=== PATIENT | female | born 1965 | race Caucasian/White ===

== ENCOUNTER 2020-06-02 22:35 | Emergency (ER) | payer OTHER ==
--- OUTSIDE RECORDS SUMMARY | 2020-06-02 22:36 | XMS REPORT | Continuity of Care Document ---
:1965 Author Organization [facility] t Address [address] [place] [address] Care Team Providers Name Role Phone DENISE Attending Clinician Unavailable Familia Mariee Attending Clinician Ezio Hardy Attending Clinician Problems Condition Condition Condition Status Onset Resolution Last Treating Co mments Source Name Details Category Date Date Treatment Clinician Date Z07.15 - Diagnosis Active 2015-12-01 M emoria ENCNTR 11-30 15:55:00 l SCREEN Z. - 00:01: Jerel smith MAMMOGRAM ENCNTR 00 FOR MA SCREEN MAMMOGRAM FOR MA Active 12/01/2015 OPID Dennard 622.4 - Diagnosis Active 2015-01-21 Me moria STRICTURE 01-19 12:37:00 l OF CE 622.4 - 00:01: [place] STRICTURE 00 OF CE Active 01/19/2015 OPID Dennard History of History of Problem Resolve Univers depression depression d it y of [place] [facility] History of History of Problem Resolve Univers Lyme Lyme d ity of disease disease [place] [facility] History of History of Problem Resolve Univers Osteoarthr Osteoarthr d it y of itis itis [place] [facility] Encounter Encounter Problem Active Uni vers for for it[place] cyn[place] cynthia Physici examinatio examinatio an s n with n with Papanicola Papanicola ou smear ou smear of cervix of cervix Allergies, Adverse Reactions, Alerts Allergy Allergy Status Severity Reaction(s) Onset Inactive Treating Comm ents Source Name Type Date Date Clinician Penicill drug Active Univers ins allergy [facility] [place] [facility] sulfa drug Active [facility] allergy [facility] [place] [facility] penicill penicill Active Memori a ins ins l [place] sulfa sulfa Active Memoria drugs drugs l [place] Social History Social Habit Start Date Stop Date Quantity Comments Source Social History 2015-12-02 2015-12-02 [facility] Sadiq bernardo 04:59:00 04:59:00 Smoking Status Start Date Stop Date Source Current every day smoker [facility] [place] [facility] Medications Ordered Filled Start Stop Current Ordering Indication Dosage Frequency Signature Comments Components Source Medication Medication Date Date Medication? Clinician (SIG) Name Name metroNIDAZO metroNIDAZO Yes WILLIAM Take one Univers LE 500 MG LE 500 MG 3-28 DENISE tablet po ity of Oral Tablet Oral Tablet 00:00: M.D. bid for 7 [place] 00 days Physici ans Wellbutrin Wellbutrin Yes R.N. Uni vers TABS TABS [facility] [place] [facility] Adderall Adderall Yes R.N. Univers TABS TABS ity of [place] [facility] carBAMazepi carBAMazepi Yes R.N. U nivers ne TABS ne TABS ity of [place] [facility] Gabapentin Gabapentin Yes R.N. Uni vers TABS TABS ity of [place] [facility] ans traZODone traZODone Yes R.N. Unive rs HCl TABS HCl TABS ity of [place] [facility] Vital Signs Vital Name Observation Time Observation Value Comments Source BP Systolic 2018-10-09 113 mm[Hg] Location: [facility] 15:52:00 Position: [place] [facility] Sitting BP Diastolic 2018-10-09 71 mm[Hg] Location: [facility] 15:52:00 Position: [place] [facility] Sitting Height 2018-10-09 64 [in_us] [facility] 15:52:00 [place] Physician s Weight 2018-10-09 141 [lb_av] [facility] 15:52:00 [place] [facility] Body Mass Index 2018-10-09 24.2 kg/m2 University o Calculated 15:52:00 [place] Physician s Temperature 2018-10-09 98.6 [degF] Method: Oral [facility] 15:52:00 [place] [facility] Heart Rate 2018-10-09 73 /min Location: [facility] 15:52:00 Brachial [place] [facility] Artery; Procedures Procedure Date / Time Performed Performing Clinician Judy Chung [facility] - PAP 2018-10-10 00:00:00 [facility] [place] [facility] . [facility] - Affirm 2018-10-10 00:00:00 [facility] VPIII (BV Panel) Physicians [QH] HEPATITIS B 2018-10-09 00:00:00 [facility] SURFACE ANTIGEN W/REFL Physician s CONFIRM [QH] HIV AB, HIV 1/2, 2018-10-09 00:00[facility]00 [facility] WITH [facility]LEX[facility] Phys[facility] [QLH] HEPATITIS C 2018-10-09 00:00:00 [facility] ANTIBODY Physicians [QLH] RPR 2018-10-09 00:00:00 [place] [facility] [place] [facility] History of Uterine [facility] nerve ablation Physicians History of Orthopedic [facility] surgery Physicians History of Knee [facility] xa surgery Physicians History of Spinal [facility] surgery Physicians Plan of Care Planned Activity Planned Date Details Comments Source Diagnostic Test 2018-10-10 . [facility] - PAP [facility] Pending 00:00:00 [code = . [facility]icians - PAP] Diagnostic Test 2018-10-10 . [facility] - Affirm [facility] Pending 00:00:00 VPIII (BV Panel) Physicians [code = . 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 ans 2015-12-01 2015-12-01 Outpatient Akhil Mariee [id number] . [id number] 15:47:00 23:59:00 Familia [id number] 2015-01-21 2015-01-21 Outpatient Pan Hardy [id number] 12:29:00 23:59:00 Ezio 00 Results Test Description Test Time Test Comments Results Result Comments Source . [facility] - Affirm VPIII (BV Panel) 2018-10-10 00:00:00 Test Item Value Reference Range Interpretation Comme nts Affirm VPIII (BV Panel) REPORT (test code = Affirm VPIII (BV Panel) See Comment REPORT) [facility] Physicians[[facility]] [id number] 16:15:01 Test Item Value Reference Range Interpretation Comments RPR (test code = 26018-5) Non-Reactive Non-Reactive [facility][] HEPATITIS B SURFACE ANTIGEN W/REFL CONFIRM 2018-10-09 16:15:01 Test Item Value Reference Range Interpretation Comments Hepatitis B Surface Antigen (test Negative Negative code = 5195-3) [facility]] HEPATITIS C [id number] 16:15:01 Test Item Value Reference Range Interpretation Comments Hepatitis C Antibody (test code = Negative 83753-2) [facility][] HIV AB, HIV 1/2, EIA, WITH [id number] 16:15:01 Test Item Value Reference Range Interpretation Comments HIV Ag/Ab 4th Gen Negative Negative HIV test r esults should be (test code = considered posi tive only 84643-1) when both the s creening andthe confirma tory tests are positive. A negative confirmatory te st in patientswith a positive screening test does not exclude HIV inf ection. If clincallywarran caty, an HIV RNA quantitativ e test should be order ed. [facility]
--- OUTSIDE RECORDS SUMMARY | 2020-06-02 22:36 | XMS REPORT | Continuity of Care Document ---
:1965 Author Organization [facility] Information [place] Care Team Providers Name Role Phone [facility] Information [employer] Unavailable Un available Problems Problem Status Onset Classification Date Comments Sourc e Date Reported Z12.31 - Active MH OPID Th e ENCNTR SCREEN 6 [place] MAMMOGRAM FOR [place] 622.4 - Active OPID Th e STRICTURE OF 5 [place] CE Medications No Data Provided for This Section Allergies, Adverse Reactions, Alerts Substance Category Reaction Severity Reaction Status Date Comments S ource type Reported penicillins Assertion Drug Active OPID allergy [facility] [place] [facility] sulfa drugs Assertion Drug Active OPID allergy [facility] Immunizations No Data Provided for This Section Results No Data Provided for This Section Pathology Reports No Data Provided for This Section Diagnostic Reports Report Value Date Source Digital Mammo Screen - DIGITAL MAMMO SCREEN PIERCE MA W ABEBE 2015 MH OPID [facility] MA w abebe BILATERAL DIGITAL SCREENING MAMMOGRAM 3D/2D WITH CAD: 12/01/2015 CLINICAL: Screening Karina Vicente . 2D digital mammographic imag es and 3D digital tomosynthesis images were obtained in the CC and MLO projections. Current study was evaluated with a Manager Of Production d Detection (CAD) system. No prior exams were available for comparison. The tissue of both breasts i s heterogeneously dense, which could obscure detection of small masses. No significant masses, calci fications, or other findings are seen in either breast. IMPRESSION: NEGATIVE There is no mammographic aziza dence of malignancy. A 1 year screening mammogram is recommended. Anthony pena/otoniel:12/14/2015 10:31:35 [employer] Package Symbol Stamper: Soren Em [facility] This exam was dictated and i nterpreted by [id number] for [facility]. letter sent: Normal [place] Mammogram BI-RADS: 1 Negative Spine cervical w/wo Name: KARINA VICENTE 01/21/2015 [employer] SHETH Vent[place] contrast MRI : 1965 SEX: F Ordering Physician: Pan Hardy Spine cervical w/wo contrast MRI : Jan 21, 2015 01:29:00 PM. CLINICAL INDICATION: Left arm weakness. Comparison Examination: 04/21/2009 TECHNIQUE: Multiplanar noncontrast T1, T2, and STIR weighted as well as contrast enhanced MR images of the cervical spine are obtained on a Alatorre 3 Regine magnet. Contrast: 16cc of intravenous gadolinium FINDINGS: Visualized intracranial structures are within no rmal limits. Vertebral body heights are maintained. Multilevel disc desiccation is seen. Prevertebral soft tissues are within normal limi ts. Cord signal and contour is within normal limits. C2-3: Progressive right para central disc osteophyte complex causes moderate right neural foraminal narrowing. No central spinal canal stenosis. C3-4: Progressive right para central disc osteophyte complex causes moderate right greater than left neural foraminal narrowing. No central spinal canal stenosis. C4-5: Persistent disc osteop hyte complex causes mild central spinal canal stenosis. Moderate to marked right and mild left neural foraminal narrowing. C5-6: Persistent left parace ntral disc osteophyte complex causes severe central spinal canal stenosis and left neural foraminal narrowing. Moderate right neural foraminal narrowing. C6-7: Persistent left parace ntral disc osteophyte complex causes mild to moderate central spinal canal stenosis. Moderate left and mild right neural foraminal narrowing. C7-T1: Small disc osteophyte complex causes persistent mild bilateral neural foraminal narrowing. No central spinal canal stenosis. IMPRESSION: 1. C2-3: Progressive right p aracentral disc osteophyte complex causes moderate right neural foraminal narrowing. 2. C3-4: Progressive right p aracentral disc osteophyte complex causes moderate right greater than left neural foraminal narrowing. 3. C5-6: Persistent left par acentral disc osteophyte complex causes severe central spinal canal stenosis and left neural foraminal narrowing. Moderate right neural foraminal narrowing. 4. C6-7: Persistent left par acentral disc osteophyte complex causes mild to moderate central spinal canal stenosis. Moderate left and mild right neural foraminal narrowing. TWOPID - 55 Consultation Notes No Data Provided for This Section Discharge Summaries No Data Provided for This Section History and Physicals No Data Provided for This Section Vital Signs No Data Provided for This Section Encounters Location Location Encounter Encounter Reason Attending ADM [place] Stat Source Details Type Number For Provider Date Date Visit [facility] Outpt Diag [id number] Pan Antony 01/21 01/22 OP[facility] Outpatient Services /2014 [facility] Outpatient [id number] Akhil Mariee 11/30 12/01 OP[facility] Outpatient /2015 [facility] Procedures No Data Provided for This Section Assessment and Plan No Data Provided for This Section Plan of Care No Data Provided for This Section Social History Social History Date Source No data available for this 12/02/2015 [facility]ID [facility] section Family History No Data Provided for This Section Advance Directives No Data Provided for This Section Functional Status No Data Provided for This Section
[2020-06-02] MEDS ORDERED: ONDANSETRON 4 MG/2 ML VIAL ONE (23:55)
[2020-06-02] MEDS ORDERED: NA CHLORIDE 0.9% 1,000 ML ONE (23:55)
[2020-06-02] MEDS ORDERED: FENTANYL CITR 100 MCG/2 ML ONE (23:55)
[2020-06-02] MEDS ORDERED: CEFTRIAXONE/SWI 1gm 1 GM/10 ML SYR ONE (23:56)
[2020-06-03 00:18] LABS: Absolute Lymphocytes (CBC) 1.8 K/uL (0.7-4.9); Basophils % 0.7 % (0-1.3); Hematocrit 38.1 % (36.0-45.0); Lymphocytes % 15.1 % (15.3-44.8); MPV 8.9 fL (7.6-11.3); RBC Red Blood Cell Count 4.23 M/uL (3.86-4.86)
[2020-06-03 00:21] LABS: Urine Blood 2+ (NEG); Urine Glucose TRACE (NEG); Urine Protein 2+ (NEG); Urine pH 6.5 (5.0-7.0)
[2020-06-03 00:30] LABS: ALT/SGPT 17 U/L (12-78); AST/SGOT 9 U/L (15-37); Albumin 3.4 g/dL (3.4-5.0); Alkaline Phosphatase 98 U/L (45-117); BUN Blood Urea Nitrogen 19 mg/dL (7-18); Bicarbonate 29 mmol/L (21-32); Bilirubin Direct < 0.1 mg/dL (0-0.2); Bilirubin Total 0.2 mg/dL (0.2-1.0); Glucose Level 88 mg/dL (74-106); Lipase 205 U/L (73-393); Potassium 3.7 mmol/L (3.5-5.1); Protein, Total 7.3 g/dL (6.4-8.2); Sodium Level 144 mmol/L (136-145)
[2020-06-03 00:42] LABS: Urine Bacteria <20 /HPF (<20); Urine Culture Reflex Order REFLEXED
--- NOTE | 2020-06-03 01:01 | EDPHYS ---
Physician Documentation [facility] Name: Karina Vicente Age: 55 yrs Sex: Female : 1965 Arrival Date: 06/02/2020 Time: 22:38 Bed 7 Private MD: ED Physician Yoshi Posadas HPI: 06/02 23:20 This 55 yrs old Female presents to ER via Ambulatory with complaints of Pain cp With Urination, Blood In Urine, Abdominal Pain. 23:20 The patient presents with urinary symptoms, dysuria, hematuria. cp 23:20 Onset: The symptoms/episode began/occurred 2 day(s) ago. Associated signs and symptoms: cp Pertinent positives: dysuria, hematuria, nausea, Pertinent negatives: constipation, diarrhea, fever, vomiting. Severity of symptoms: in the emergency department the symptoms are unchanged, despite home interventions. 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 - Social history:: Smoking status: Reported history of juuling and/or vaping. ROS: 23:30 Constitutional: Negative for body aches, chills, fever, poor PO intake. cp 23:30 Eyes: Negative for injury, pain, redness, and discharge. cp 23:30 ENT: Negative for ear pain, sore throat, difficulty swallowing, difficulty handling secretions. 23:30 Cardiovascular: Negative for chest pain, palpitations. 23:30 Respiratory: Negative for cough, shortness of breath, wheezing. 23:30 Abdomen/GI: Positive for abdominal pain, nausea, of the suprapubic area, anterior aspect of left lateral abdomen, right lower quadrant and left lower quadrant, Negative for vomiting, diarrhea, constipation. 23:30 : Positive for hematuria, burning with urination. 23:30 Neuro: Negative for altered mental status, headache, weakness. 23:30 All other systems are negative. Exam: 23:33 Constitutional: The patient appears in no acute distress, alert, awake, non-toxic, well cp developed, well nourished, uncomfortable. 23:33 Head/Face: Normocephalic, atraumatic. cp 23:33 Eyes: Periorbital structures: appear normal, Conjunctiva: normal, no exudate, no injection, Sclera: no appreciated abnormality, Lids and lashes: appear normal, bilaterally. 23:33 ENT: External ear(s): are unremarkable, Nose: is normal, Mouth: Lips: moist, Oral mucosa: moist, Posterior pharynx: Airway: no evidence of obstruction, patent. 23:33 Neck: ROM/movement: is normal, is supple, without pain, no range of motions limitations. 23:33 Chest/axilla: Inspection: normal, Palpation: is normal, no crepitus, no tenderness. 23:33 Cardiovascular: Rate: normal, Rhythm: regular. 23:33 Respiratory: the patient does not display signs of respiratory distress, Respirations: normal, no use of accessory muscles, no retractions, labored breathing, is not present, Breath sounds: are clear throughout, no decreased breath sounds, no stridor, no wheezing. 23:33 Abdomen/GI: Inspection: abdomen appears normal, Bowel sounds: active, all quadrants, Palpation: moderate abdominal tenderness, in the suprapubic area, right lower quadrant and left lower quadrant, rebound tenderness, is not appreciated, voluntary guarding, is elicited in the suprapubic area, right lower quadrant and left lower quadrant. 23:33 Back: ROM is normal, CVA tenderness, that is mild, is noted on the left. 23:33 Skin: no rash present. 23:33 Neuro: Orientation: to person, place \T\ time. Mentation: is normal, Motor: moves all fours, strength is normal, Gait: is steady. Vital Signs: 22:47 BP 114 / 73; Pulse 97; Resp 18; Temp 98.7(O); Pulse Ox 98% on R/A; Weight 62.14 kg; dm5 Height 5 ft. 4 in. (162.56 cm); Pain 02/22; 06/03 01:00 BP 123 / 88; Pulse 80; Resp 18; Temp 98.6; Pulse Ox 98% ; ea 06/02 22:47 Body Mass Index 23.52 (62.14 kg, 162.56 cm) dm5 MDM: 06/02 22:59 Patient medically screened. cp 06/03 01:01 Data reviewed: vital signs, nurses notes, lab test result(s), radiologic studies, CT cp scan. 01:01 Counseling: I had a detailed discussion with the patient and/or guardian regarding: the cp historical points, exam findings, and any diagnostic results supporting the discharge/admit diagnosis, lab results, radiology results, to return to the emergency department if symptoms worsen or persist or if there are any questions or concerns that arise at home. Response to treatment: the patient's symptoms have markedly improved after treatment. ED course: VSS. Pain and nausea markedly improved. [place] prescription monitor website reviewed and no recent prescriptions for narcotic medications noted. Will discharge to home for continued monitoring. 06/02 22:56 Order name: Urine Microscopic Only; Complete Time: 01: 06/03 01:01 Interpretation: Normal except: UWBC >50; URBC 10-20. 06/02 23:08 Order name: Urine Dipstick--Ancillary (enter results); Complete Time: 00:26 06/03 00:26 Interpretation: Normal except: UBLD 2+; UPROT 2+; U NIT POSITIVE; UESTR 1+. 06/02 23:08 Order name: Urine --Ancillary (enter results); Complete Time: 00:26 06/02 23:37 Order name: Basic Metabolic Panel 06/02 23:37 Order name: CBC with Diff; Complete Time: 00:26 06/03 01:02 Interpretation: Normal except: WBC 12.1; ANGEL% 75.3; LYM% 15.1; NEUT A 9.1. 06/02 23:37 Order name: Hepatic Function; Complete Time: 01: 06/02 23:37 Order name: Lipase; Complete Time: 01: 06/02 23:38 Order name: Basic Metabolic Panel; Complete Time: 01:01 [facility] 06/02 23:38 Order name: CT Stone Protocol 06/03 00:44 Order name: Urine Culture [facility] 06/02 22:56 Order name: Urine Dipstick-Ancillary (obtain specimen); Complete Time: 23:07 06/02 22:56 Order name: Urine Test (obtain specimen); Complete Time: 23:07 06/02 23:37 Order name: IV Saline Lock; Complete Time: 00:09 06/02 23:37 Order name: Labs collected and sent; Complete Time: 00:09 Administered Medications: 00:00 Drug: Rocephin 1 grams Route: IV; Rate: calculated rate; Site: left forearm; ea 01:20 Follow up: Response: No adverse reaction; IV Status: Completed infusion ea 00:00 Drug: Zofran (Ondansetron) 4 mg Route: IVP; Site: left forearm; ea 01:00 Follow up: Response: No adverse reaction ea 00:00 Drug: NS 0.9% 1000 ml Route: IV; Rate: 1 bolus; Site: left forearm; ea 01:00 Follow up: Response: No adverse reaction; IV Status: Completed infusion; IV Intake: ea 1000ml 00:05 Drug: fentaNYL (PF) 25 mcg {Note: raas 1.} Route: IVP; Site: left antecubital; ea 01:00 Follow up: Response: No adverse reaction ea Disposition: 03:05 Co-signature as Attending Physician, Yoshi Posadas MD. pkcristian Disposition: 06/03/20 01:01 Discharged to Home. Impression: Cystitis, unspecified. - Condition is Stable. - Discharge Instructions: Urinary Tract Infection, Adult. - Prescriptions for Pyridium 200 mg Oral Tablet - take 1 tablet by ORAL route every 8 hours for 3 days; 9 tablet. Zofran 4 mg Oral Tablet - take 1 tablet by ORAL route every 12 hours As needed; 20 tablet. Keflex 500 mg Oral Capsule - take 1 capsule by ORAL route every 8 hours for 7 days; 21 capsule. Tramadol 50 mg Oral Tablet - take 1 tablet by ORAL route every 8 hours as needed; 12 tablet. - Medication Reconciliation Form, Thank You Letter, Antibiotic Education, Prescription Opioid Use form. - Family Work Release (06/03/20 01:30). ea - Follow up: Private Physician; When: 1 - 2 days; Reason: Recheck today's complaints. - Problem is new. - Symptoms have improved. Signatures: Dispatcher [employer] Veronica Moore RN RN dmYoshi Fuller MD MD pkl Page, Corey, PA PA cp Antunez, Elena, RN RN ea Corrections: (The following items were deleted from the chart) 01:02 01:01 Normal except: WBC 12.1. cp cp 01:09 01:01 06/03/2020 01:01 Discharged to Home. Impression: Urinary tract infection, site cp not specified. Condition is Stable. Forms are Medication Reconciliation Form, Thank You Letter, Antibiotic Education, Prescription Opioid Use. Follow up: Private Physician; When: 1 - 2 days; Reason: Recheck today's complaints. Problem is new. Symptoms have improved. cp 01:21 01:09 06/03/2020 01:01 Discharged to Home. Impression: Cystitis, unspecified. Condition ea is Stable. Discharge Instructions: Urinary Tract Infection, Adult. Prescriptions for Pyridium 200 mg Oral Tablet - take 1 tablet by ORAL route every 8 hours for 3 days; 9 tablet, Zofran 4 mg Oral Tablet - take 1 tablet by ORAL route every 12 hours As needed; 20 tablet, Keflex 500 mg Oral Capsule - take 1 capsule by ORAL route every 8 hours for 7 days; 21 capsule, Tramadol 50 mg Oral Tablet - take 1 tablet by ORAL route every 8 hours as needed; 12 tablet. and Forms are Medication Reconciliation Form, Thank You Letter, Antibiotic Education, Prescription Opioid Use. Follow up: Private Physician; When: 1 - 2 days; Reason: Recheck today's complaints. Problem is new. Symptoms have improved. cp
--- NOTE | 2020-06-03 01:01 | ER ---
Nurse's Notes [facility] Name: Karina Vicente Age: 55 yrs Sex: Female : 1965 Arrival Date: 06/02/2020 Time: 22:38 Bed 7 Private MD: Diagnosis: Cystitis, unspecified Presentation: 06/02 22:47 Chief complaint: Patient states: pain with urination started, blood in urine started dm5 yesterday afternoon. abdominal pain started in LUQ and has moved to suprapubic area. Pain rated at 8/10 at this time. Pt reports taking AZO Sunday evening and this morning. Pt reports nausea intermittently, dizzyness. Coronavirus screen: Client denies travel out of the [place] in the last 14 days. nausea. Ebola Screen: Patient negative for fever greater than or equal to 101.5 degrees Fahrenheit, and additional compatible Ebola Virus Disease symptoms Patient denies exposure to infectious person. Patient denies travel to an Ebola-affected area in the 21 days before illness onset. No symptoms or risks identified at this time. Initial Sepsis Screen: Does the patient meet any 2 criteria? HR > 90 bpm. No. Patient's initial sepsis screen is negative. Does the patient have a suspected source of infection? Yes: Dysuria/Frequency/Urgency/UTI. Risk Assessment: Do you want to hurt yourself or someone else? Patient reports no desire to harm self or others. Onset of symptoms was May 31, 2020. 22:47 Method Of Arrival: Ambulatory dm5 22:47 Acuity: AMY 3 dm5 Triage Assessment: 22:51 General: Appears in no apparent distress. Behavior is calm, cooperative. Pain: dm5 Complains of pain in suprapubic area Pain currently is 8 out of 10 on a pain scale. Quality of pain is described as crampy, tingling, Is intermittent. Neuro: Level of Consciousness is awake, alert, obeys commands, Oriented to person, place, time, situation. GI: Reports lower abdominal pain, nausea. : Reports burning with urination, cramping, urgency, urinary frequency. TECHNICAL SME: 22:51 LMP N/A - ablation dm5 Historical: - Allergies: 22:51 PENICILLINS; dm5 22:51 Sulfa (Sulfonamide Antibiotics); dm5 - Immunization history:: Adult Immunizations up to date. - Social history:: Smoking status: Reported history of juuling and/or vaping. Screenin/19 00:20 Abuse screen: Denies threats or abuse. Nutritional screening: No deficits noted. ea Tuberculosis screening: No symptoms or risk factors identified. Fall Risk IV access (20 points). Assessment: 06/02 23:40 General: Appears uncomfortable, Behavior is appropriate for age. Pain: Complains of ea pain in suprapubic area. Neuro: Level of Consciousness is awake, alert, obeys commands, Oriented to person, place, time, situation. Cardiovascular: Patient's skin is warm and dry. Respiratory: Airway is patent Respiratory effort is even, unlabored, Respiratory pattern is regular, symmetrical. Derm: Skin is pink, warm \T\ dry. 06/03 01:18 Reassessment: Patient and/or family updated on plan of care and expected duration. Pain ea level reassessed. Patient is alert, oriented x 3, equal unlabored respirations, skin warm/dry/pink. Discharge instruction given to patient, verbalized the understanding of instruction. Pt left ED ambulatory tolerating well. Pt accompanied by family. Vital Signs: 06/02 22:47 BP 114 / 73; Pulse 97; Resp 18; Temp 98.7(O); Pulse Ox 98% on R/A; Weight 62.14 kg; dm5 Height 5 ft. 4 in. (162.56 cm); Pain 8/10; 06/03 01:00 BP 123 / 88; Pulse 80; Resp 18; Temp 98.6; Pulse Ox 98% ; ea 06/02 22:47 Body Mass Index 23.52 (62.14 kg, 162.56 cm) dm5 ED Course: 06/02 22:38 Patient arrived in ED. cl3 22:51 Triage completed. dm5 22:51 Arm band placed on right wrist. Patient placed in an exam room. dm5 22:52 Zen Galdamez PA is PHCP. cp 22:52 Yoshi Posadas MD is Attending Physician. cp 22:57 Aminata Garcia RN is Primary Nurse. ea 23:45 Inserted saline lock: 20 gauge in left forearm, using aseptic technique. Blood ea collected. 06/03 00:00 Urine collected: clean catch specimen, has been sent to lab for a UMIC/UCULTURE. sg 00:20 Patient has correct armband on for positive identification. Placed in gown. Call light ea in reach. Side rails up X 1. Pulse ox on. NIBP on. 00:23 CT Stone Protocol In Process Unspecified. EDMS 01:19 No provider procedures requiring assistance completed. IV discontinued, intact, ea bleeding controlled, No redness/swelling at site. Pressure dressing applied. Administered Medications: 00:00 Drug: Rocephin 1 grams Route: IV; Rate: calculated rate; Site: left forearm; ea 01:20 Follow up: Response: No adverse reaction; IV Status: Completed infusion ea 00:00 Drug: Zofran (Ondansetron) 4 mg Route: IVP; Site: left forearm; ea 01:00 Follow up: Response: No adverse reaction ea 00:00 Drug: NS 0.9% 1000 ml Route: IV; Rate: 1 bolus; Site: left forearm; ea 01:00 Follow up: Response: No adverse reaction; IV Status: Completed infusion; IV Intake: ea 1000ml 00:05 Drug: fentaNYL (PF) 25 mcg {Note: raas 1.} Route: IVP; Site: left antecubital; ea 01:00 Follow up: Response: No adverse reaction ea Intake: 01:00 IV: 1000ml; Total: 1000ml. ea Outcome: 01:01 Discharge ordered by . alpesh 01:19 Discharged to home ambulatory, with family. ea 01:19 Condition: stable 01:19 Discharge instructions given to patient, Instructed on discharge instructions, follow up and referral plans. medication usage, Demonstrated understanding of instructions, follow-up care, medications, Prescriptions given X 4. 01:21 Patient left the ED. ea Signatures: Dispatcher [employer] EDUT Veronica Bailon RN RN dm5 Gay, Steven, RN RN [place] PA PA cp Antunez, Elena, RN RN ea Lewis, Charde cl3 Corrections: (The following items were deleted from the chart) 01:19 01:18 Reassessment: Patient and/or family updated on plan of care and expected ea duration. Pain level reassessed. Patient is alert, oriented x 3, equal unlabored respirations, skin warm/dry/pink. Discharge instruction given to patient, verbalized the understanding of instruction. Pt left ED ambulatory tolerating well. ea
--- NOTE | 2020-06-03 10:17 | RAD REPORT ---
EXAM DESCRIPTION: CT - Stone Protocol - 06/03/2020 6:36 am CLINICAL HISTORY: Left flank pain; pain with urination, hematuria TECHNIQUE: Contiguous axial images obtained through the abdomen and pelvis without IV contrast. Kaleigh nal and sagittal reformatted images were provided. This exam was performed according to our departmental dose-optimization program, which includes autom ated exposure control, adjustment of the mA and/or kV according to patient size and/or use of iterati ve reconstruction technique. COMPARISON: None available for comparison. FINDINGS: Lung bases: Bibasilar subsegmental atelectasis. Left lower lobe calcified granuloma. Liver: Grossly unremarkable Gallbladder and biliary system: Unremarkable Pancreas: Grossly unremarkable Spleen: Grossly unremarkable Adrenals: Low density nodules bilaterally measuring 2 cm on the right and 1.6 cm on the left compatib le with benign adenomas. Kidneys: No calculi. No hydronephrosis. Bowel: Moderate stool. Colonic diverticula without adjacent inflammatory change. No obstruction. No a ppreciable mucosal thickening. Appendix: Normal caliber appendix. No findings to suggest acute appendicitis. Urinary bladder: Moderate circumferential urinary bladder wall thickening. Infiltrative changes withi n the perivesical fat. Reproductive: Unremarkable as visualized Lymph nodes: No pathologically enlarged lymph nodes. Peritoneum: No focal fluid collection. No free air. Vessels: Mild atherosclerotic disease. No abdominal aortic aneurysm. Abdominal wall: Tiny fat-containing umbilical hernia. Bones: Multilevel spondylosis. No acute fracture. IMPRESSION: 1. No renal, ureteral or bladder calculi. No evidence for renal obstruction. 2. Findings suggestive of cystitis. 3. Other findings as above. Electronically signed by: Fernando Fletcher MD 06/03/2020 12:35 AM METAL TILE SETTER Due to temporary technical issues with the PACS/Fluency reporting system, reports are being signed by the in house radiologist without review as a courtesy to ensure prompt reporting. The interpreting r adiologist is fully responsible for the content of the report.
[2020-06-03 12:06] VITALS: O2SAT 98
[2020-06-03 12:07] VITALS: BP 123/88; TEMP 98.6
== END 2020-06-03 01:21 | disposition home or self-care (01) ==
LOC: ER 22:35
DX: N30.90 Cystitis, unspecified without hematuria (principal); Z88.0 Allergy status to penicillin; Z88.2 Allergy status to sulfonamides
CPT/HCPCS: 87088; 85025; 87086; 80048; 36415; 81025; 80076; 81003; 81015; 83690; 76377; 74176; 99284; J3010; J0696; J7030; J2405

== ENCOUNTER 2024-09-10 20:05 | Emergency (ER) | payer OTHER ==
--- NOTE | 2024-09-10 21:12 | EDPHYS ---
Physician Documentation [facility] Name: Karina Vicente Age: 59 yrs Sex: Female : 1965 Arrival Date: 09/10/2024 Time: 20:05 Bed DX1 Private MD: Camilla Luque L. ED Physician Antonio Hauser HPI: 09/10 20:20 This 59 yrs old Female presents to ER via Unassigned with complaints of Mouth sp4 Pain, post op biopsy. 20:58 Right lower mandibular pain after biopsy . sp4 09/11 20:59 Patient reports she had right lower posterior gingival biopsy right next to tooth #31 sp4 to rule out oral cancer. This was done on Sunday. Since then patient developed increasing pain at the biopsy site associated with pain traveling down her neck. Patient is here to be evaluated for biopsy related complications. Biopsy was done by Dr. Luque with ENT . Historical: - Allergies: 09/10 21:31 PENICILLINS; vc1 21:31 Sulfa (Sulfonamide Antibiotics); vc1 - PMHx: 21:31 None; vc1 - PSHx: 21:31 right buccal biopsy; vc1 - Immunization history:: Client reports receiving the 2nd dose of the Covid vaccine. - Infectious Disease History:: Denies. - Social history:: Smoking status: Patient reports the use of cigarette tobacco products, smokes one-half pack cigarettes per day. - Family history:: not pertinent. ROS: 09/11 20:59 Constitutional: Negative for fever, chills, and weight loss, positive for oral pain and sp4 right lower gingival pain at the site of biopsy All other systems are negative, Exam: 20:59 Constitutional: This is a well developed, well nourished patient who is awake, alert, sp4 and in no acute distress. Head/Face: Normocephalic, atraumatic. Eyes: Pupils equal round and reactive to light, extra-ocular motions intact. Lids and lashes normal. Conjunctiva and sclera are not injected. Cornea within normal limits. Periorbital areas with no swelling, redness, or edema. ENT: Nares patent. No nasal discharge, no septal abnormalities noted. Tympanic membranes are normal and external auditory canals are clear. Oropharynx with no redness, swelling, or masses, exudates, or evidence of obstruction, uvula midline. Mucous membranes moist. Right lower gingiva posterior to tooth #31 there is biopsy site which appears clean without hemorrhage, punch type biopsy with associated swelling of surrounding tissues without significant erythema or signs of purulent exudate. No mass or significant fluid collection Neck: Trachea midline, no thyromegaly or masses palpated, and no cervical lymphadenopathy. Supple, full range of motion without nuchal rigidity, or vertebral point tenderness. Chest/axilla: Normal chest wall appearance and motion. Nontender with no deformity. No lesions are appreciated. Cardiovascular: Regular rate and rhythm with a normal S1 and S2. No gallops, murmurs, or rubs. Normal PMI, no JVD. No pulse deficits. Respiratory: Lungs have equal breath sounds bilaterally, clear to auscultation and percussion. No rales, rhonchi or wheezes noted. No increased work of breathing, no retractions or nasal flaring. Abdomen/GI: Soft, with normal bowel sounds. No distension or tympany. No guarding or rebound. No evidence of tenderness throughout. Back: No spinal tenderness. No costovertebral tenderness. Skin: Warm, dry with normal turgor. Normal color with no rashes, no lesions, and no evidence of cellulitis. MS/ Extremity: Pulses equal, no cyanosis. Neurovascular intact. Full, normal range of motion. Neuro: Awake and alert, GCS 15, oriented to person, place, time, and situation. Cranial nerves II-XII grossly intact. Motor strength 5/5 in all extremities. Sensory grossly intact. Psych: Awake, alert, with orientation to person, place and time. Behavior, mood, and affect are within normal limits Vital Signs: 09/10 21:29 BP 140 / 70; Pulse 65; Resp 16; Temp 97.4; Pulse Ox 98% ; Weight 58.97 kg; Height 5 ft. vc1 4 in. ; Pain 8/10; 21:29 Body Mass Index 22.31 (58.97 kg, 162.56 cm) vc1 21:29 Pain Scale: Adult vc1 Porfirio Coma Score: 09/11 20:59 Eye Response: spontaneous(4). Motor Response: obeys commands(6). Verbal Response: sp4 oriented(5). Total: 15. MDM: 09/10 21:04 Medical Screening Exam initiated sp4 09/11 21:02 Differential diagnosis: dental caries, gingivitis, dental abscess, aphthous ulcers, sp4 gingivostomatitis. Data reviewed: vital signs, nurses notes. ED course: Patient was discussed with her ENT Dr. Luque who advised pain control in ER also preventative cephalexin twice a day for 10 days. Patient was advised to call Dr. Luque in the morning for schedule appointment this coming week. No signs of significant biopsy complications no signs of fluid collection no signs of infection no signs of mass or active bleeding. There is no facial swelling no neck swelling and no neck mass on exam. Patient stable for discharge home.. Administered Medications: 09/10 21:10 CANCELLED (Patient Refused): bupivacaine(0.5 %) 10 ml 10 ml Infiltration once vc1 21:35 Drug: Cephalexin PO 500 mg PO once Route: PO; vc1 21:36 Follow up: Response: Medication administered at discharge. vc1 21:36 Drug: Ketorolac IM 30 mg IM once Route: IM; Site: right deltoid; vc1 21:36 Follow up: Response: Medication administered at discharge. vc1 Disposition Summary: 09/10/24 21:12 Discharge Ordered Notes: Location: Home sp4 Condition: Stable sp4 Diagnosis - Acute Right Lower Oral pain, Acute Post operative Oral pain, Pain at the site sp4 of gingival biopsy Followup: sp4 - With: Camilla Luque MD - When: 48 Hours - Reason: Recheck today's complaints Discharge Instructions: - Discharge Summary Sheet sp4 - Dental Pain, [id number] sp4 Forms: - Patient Portal Instructions sp4 Prescriptions: - Cephalexin 500 mg Oral Capsule - take 1 capsule ORAL route every 12 hours for 10 days; 20 capsule; Refills: 0, sp4 Product Selection Permitted - Ibuprofen 600 mg Oral Tablet - take 1 tablet ORAL route every 6 hours As needed take with food; 30 tablet; sp4 Refills: 0, Product Selection Permitted Signatures: Katy King RN RN vc1 Antonio Hauser MD MD sp4 Corrections: (The following items were deleted from the chart) 21:10 20:52 Bupivacaine Infiltration (0.5 %) 10 ml 10 ml Infiltration once ordered. sp4 vc1 21:32 21:31 PSHx: None; vc1 vc1
[2024-09-10] MEDS ORDERED: KETOROLAC 30 MG/ML INJ ONE (21:13)
[2024-09-10] MEDS ORDERED: CEPHALEXIN 250 MG CAP ONE (21:13)
--- NOTE | 2024-09-10 21:36 | ER ---
Nurse's Notes [facility] Name: Karina Vicente Age: 59 yrs Sex: Female : 1965 Arrival Date: 09/10/2024 Time: 20:05 Bed DX1 Private MD: Camilla Luque L. Diagnosis: Acute Right Lower Oral pain, Acute Post operative Oral pain, Pain at the site of gingival biopsy Presentation: 09/10 21:29 Chief complaint: Patient states: had a biopsy done on Sunday and it is getting more vc1 painful. Coronavirus screen: Client denies travel out of the [place] in the last 14 days. At this time, the client does not indicate any symptoms associated with coronavirus-19. Ebola Screen: Patient negative for fever greater than or equal to 101.5 degrees Fahrenheit, and additional compatible Ebola Virus Disease symptoms Patient denies exposure to infectious person. Patient denies travel to an Ebola-affected area in the 21 days before illness onset. No symptoms or risks identified at this time. Initial Sepsis Screen: Does the patient meet any 2 criteria? No. Patient's initial sepsis screen is negative. Does the patient have a suspected source of infection? No. Patient's initial sepsis screen is negative. Risk Assessment: Do you want to hurt yourself or someone else? Patient reports no desire to harm self or others. Onset of symptoms was September 10, 2024. 21:29 Method Of Arrival: Ambulatory vc1 21:29 Acuity: AMY 4 vc1 Triage Assessment: 21:33 General: Appears in no apparent distress. uncomfortable, slender, well groomed, well vc1 developed, Behavior is calm, cooperative, appropriate for age. Pain: Complains of pain in right cheek(inner). EENT: No deficits noted. No signs and/or symptoms were reported regarding the EENT system. Neuro: Level of Consciousness is awake, alert, obeys commands, Oriented to person, place, time, situation, Appropriate for age. Cardiovascular: Heart tones S1 S2 present Capillary refill < 3 seconds Patient's skin is warm and dry. Respiratory: Airway is patent Respiratory effort is even, unlabored, Respiratory pattern is regular, symmetrical, Breath sounds are clear bilaterally. GI: No deficits noted. No signs and/or symptoms were reported involving the gastrointestinal system. : No deficits noted. No signs and/or symptoms were reported regarding the genitourinary system. Derm: Skin is intact, is healthy with good turgor, Skin is dry, Skin is normal, Skin temperature is warm. Musculoskeletal: Circulation, motion, and sensation intact. Range of motion: intact in all extremities. Historical: - Allergies: 21:31 PENICILLINS; vc1 21:31 Sulfa (Sulfonamide Antibiotics); vc1 - PMHx: 21:31 None; vc1 - PSHx: 21:31 right buccal biopsy; vc1 - Immunization history:: Client reports receiving the 2nd dose of the Covid vaccine. - Infectious Disease History:: Denies. - Social history:: Smoking status: Patient reports the use of cigarette tobacco products, smokes one-half pack cigarettes per day. - Family history:: not pertinent. Screenin:32 [facility] ED Fall Risk Assessment (Adult) History of falling in the last 3 months, vc1 including since admission No falls in past 3 months (0 pts) Confusion or Disorientation No (0 pts) Intoxicated or Sedated No (0 pts) Impaired Gait No (0 pts) Mobility Assist Device Used No (0 pt) Altered Elimination No (0 pt) Score/Fall Risk Level 0 - 2 = Low Risk Oriented to surroundings, Maintained a safe environment, Educated pt \T\ family on fall prevention, incl call for assistance when getting out of bed, Hourly rounding (assess needs \T\ fall precautionary measures) done. Abuse screen: Denies threats or abuse. Nutritional screening: No deficits noted. Tuberculosis screening: No symptoms or risk factors identified. Vital Signs: 21:29 BP 140 / 70; Pulse 65; Resp 16; Temp 97.4; Pulse Ox 98% ; Weight 58.97 kg; Height 5 ft. vc1 4 in. ; Pain 8/10; 21:29 Body Mass Index 22.31 (58.97 kg, 162.56 cm) vc1 21:29 Pain Scale: Adult vc1 Porfirio Coma Score: 09/11 20:59 Eye Response: spontaneous(4). Motor Response: obeys commands(6). Verbal Response: sp4 oriented(5). Total: 15. ED Course: 09/10 20:07 Patient arrived in ED. gm2 20:08 Camilla Luque MD is Private Physician. gm2 20:19 Antonio Hauser MD is Attending Physician. sp4 21:11 Camilla Luque MD is Referral Physician. sp4 21:29 Katy King RN is Primary Nurse. vc1 21:31 Triage completed. vc1 21:32 Arm band placed on right wrist. vc1 21:33 Patient has correct armband on for positive identification. Bed in low position. Call vc1 light in reach. Provided Education on: complete abx. 21:35 No provider procedures requiring assistance completed. Patient did not have IV access vc1 during this emergency room visit. Administered Medications: 21:10 CANCELLED (Patient Refused): bupivacaine(0.5 %) 10 ml 10 ml Infiltration once vc1 21:35 Drug: Cephalexin PO 500 mg PO once Route: PO; vc1 21:36 Follow up: Response: Medication administered at discharge. vc1 21:36 Drug: Ketorolac IM 30 mg IM once Route: IM; Site: right deltoid; vc1 21:36 Follow up: Response: Medication administered at discharge. vc1 Medication: 21:33 VIS not applicable for this client. vc1 Outcome: 21:12 Discharge ordered by . sp4 21:35 Discharged to home ambulatory, vc1 21:35 Condition: stable 21:35 Discharge instructions given to patient, Instructed on discharge instructions, follow up and referral plans. medication usage, Demonstrated understanding of instructions, follow-up care, medications, Prescriptions given X 2, 21:35 Patient left the ED. vc1 Signatures: Katy King RN RN vc1 Antonio Hauser MD MD 4 Dorita Guevara 2 Corrections: (The following items were deleted from the chart) 21:32 21:31 PSHx: None; vc1 vc1
[2024-09-10 21:48] VITALS: BP 140/70; TEMP 97.4; O2SAT 98
== END 2024-09-10 21:35 | disposition home or self-care (01) ==
LOC: ER 20:05
DX: G89.18 Other acute postprocedural pain (principal); F17.210 Nicotine dependence, cigarettes, uncomplicated
CPT/HCPCS: 96372; 99284

== ENCOUNTER 2025-04-20 22:28 | Emergency (ER) | payer OTHER ==
[2025-04-20] MEDS ORDERED: LORazepam 2 MG/ML VIAL ONE (22:33)
--- OUTSIDE RECORDS SUMMARY | 2025-04-20 22:34 | XMS REPORT | Continuity of Care Document ---
Author Name Unknown Address [address] [facility] [place] [address] [facility] Address [address] [place] [address] Care Team Providers Care Chief Load Dispatcher Name Role Phone OpheliaAngelika Primary Care Physician JASON JESSICA Attending Clinician Unavailable JASON JESSICA Attending Clinician Unavailable Tori Little Attending Clinician [phone] Brandi Junior Attending Clinician [phone] KIN SCHROEDER Attending Clinician Unavailable Jason Jessica MD Attending Clinician [phone] Jose Luis Bingham MD Attending Clinician + Ana BEAN, Lashay Attending Clinician Un available Mirlande Mendez MD Attending Clinician [phone] Call, [facility] Phone Attending Clinician Unavail Shira Mensah MD Attending Clinician [phone] Queenie Cross DO Attending Clinician [phone] VERONICA WOODS Attending Clinician Unavailable Michael Gomze MD, Mary Vasquez Attending Clini anitra Susana Arteaga MD Attending Clinician [phone] SUSANA ARTEAGA Attending Clinician Unavailable WILLIAM WALKER M.D. Attending Clinician Unavail Jason Johns MD Admitting Clinician [phone] SHIRA HO Admitting Clinician Unavailable Payers Payer Name Policy Type Policy Number Effective Date Expirati on Date Source MEDICARE PART A AND B [id number] 2012 00:00:00 MEDICARE PART A \\T\\ B [id number] 2010 00:00:00 [facility] [id number] 2025 00:00:00 2025 00:00:00 Problems Condition Name Condition Details Condition Category Status Onset Date Resolution Date Last Treatment Date Treating Clinician Comments Source Lumbar radiculopa thy Lumbar radiculopa thy Disease Active 02-20 00:00: 00 [facility] Weakness of left leg Weakness of left leg Disease Active 02-20 00:00: 00 [facility] Tardive dyskinesia Tardive dyskinesia Disease Active 206 00:00: 00 [facility] History of depression History of depression Problem Resolve d [facility] History of Lyme disease History of Lyme disease Problem Resolve d [facility] History of Osteoarthr itis History of Osteoarthr itis Problem Resolve d [facility] Encounter for gynecologi cynthia examinatio n with Papanicola ou smear of cervix Encounter for gynecologi cynthia examinatio n with Papanicola ou smear of cervix Problem Active [facility] No known active problems No known active problems Disease [facility] Allergies, Adverse Reactions, Alerts Allergy Name Allergy Type Status Severity Reaction(s) Onset Date Inactive Date Treating Clinician Comments Source Citric Acid Propensi ty to adverse reaction s Active Unknown - See comments 01-20 00:00: 00 [facility] Penicill in Propensi ty to adverse reaction s Active Unknown - See comments 01-20 00:00: 00 [facility] Soap Propensi ty to adverse reaction s Active Unknown - See comments 01-20 00:00: 00 [facility] Sulfa (Sulfona mide Antibiot ics) Propensi ty to adverse reaction s Active Unknown - See comments 01-20 00:00: 00 [facility] CITRIC ACID DRUG INGREDI Active Unknown-Cmnt 01-20 00:00: 00 [facility] PENICILL IN DRUG INGREDI Active Unknown-Cmnt 01-20 00:00: 00 [facility] SOAP DRUG INGREDI Active Unknown-Cmnt 01-20 00:00: 00 [facility] SULFA (SULFONA MIDE ANTIBIOT ICS) Drug Class Active Unknown-Cmnt 01-20 00:00: 00 [facility] Citric Acid Allergy to substanc e Active 01-20 00:00: 00 Other reaction( s): Unknown - See comments [facility] Penicill ins Allergy to substanc e Active 01-20 00:00: 00 Other reaction( s): Unknown - See comments [facility] Soap Allergy to substanc e Active 01-20 00:00: 00 Other reaction( s): Unknown - See comments [facility] Sulfa Antibiot ics Allergy to substanc e Active 01-20 00:00: 00 Other reaction( s): Unknown - See comments [facility] NO KNOWN ALLERGIE S Drug Class Active [facility] Penicill ins drug allergy Active [facility] sulfa drug allergy Active [facility] Social History Social Habit Start Date Stop Date Quantity Comments Source History of tobacco use Cigarette Smoker [facility] ASSERTION Not [facility] 2025-03-05 00:00:00 2025-03-05 00:00:00 17 [facility] Tobacco use and exposure 2025-03-05 00:00:00 2025-03-05 00:00:00 Smokeless tobacco non-user [facility] Tobacco Comment 2025-02-27 00:00:00 2025-02-27 00:00:00 1/2 ppd [facility] History of Social function 2025-02-11 00:00:00 2025-02-11 00:00:00 [facility] Alcoholic beverage intake 2023-08-14 00:00:2023-08-14 00:00:00 Current drinker of alcohol (finding) [facility] Alcohol intake 2023-05-14 00:00:00 2023-05-14 00:00:00 Current drinker of alcohol (finding) [facility] Exposure to SARS-CoV-2 (event) 2022-12-15 00:00:00 2022-12-25 13:00:00 Not sure [facility] Alcohol Comment 2022-09-27 00:00:00 2022-09-27 00:00:00 socially [facility] Sex assigned at 1965 00:00:00 1965 00:00:00 F [facility] Smoking Status Start Date Stop Date Source Smokes tobacco daily 2025-03-05 00:00:00 [facility] Occasional tobacco smoker 2022-07-06 00:00:00 [facility] Never smoked tobacco [facility] Medications Ordered Medication Name Filled Medication Name Start Date Stop Date Current Medication? Ordering Clinician Indication Dosage Frequency Signature (SIG) Comments Components Source HYDROcodone -acetaminop hen 10-325 mg tablet 04-14 00:00: 00 04-22 04:59 :00 Yes [id number] 1{tbl} Take 1 tablet by mouth every 6 hours as needed for Pain (scale 7-10) for up to 7 days. [facility] acetaminoph en-codeine 300-30 mg tablet 03-26 00:00: 00 04-03 04:59 :00 Yes [id number] 1{tbl} Take 1 tablet by mouth every 4 hours as needed for Pain (scale 4-6) for up to 7 days. [facility] diazePAM (VALIUM) 5 mg tablet 03-10 00:00: 00 Yes [id number] 4100 5mg Take 1 tablet by mouth in the morning and 1 tablet in the evening. [facility] diazePAM (VALIUM) tablet 5 mg 03-08 06:15: 00 Yes 5mg 5 mg, Oral, Q8HPRN, Starting on 03/08/25 at 0115, Until Discontinu ed, Routine, Muscle Spasms [facility] HYDROcodone -acetaminop hen 10-325 mg tablet 03-08 00:00: 00 Yes [id number] 1{tbl} Take 1 tablet by mouth every 6 hours as needed for Pain (scale 4-6) or Pain (scale 7-10). [facility] docusate 100 mg capsule 03-08 00:00: 00 Yes [id number] 100mg Take 1 capsule by mouth in the morning and 1 capsule in the evening. [facility] famotidine 20 mg tablet 03-08 00:00: 00 Yes [id number] 20mg Take 1 tablet by mouth in the morning and 1 tablet in the evening. [facility] diazePAM 5 mg tablet 03-08 00:00: 00 Yes [id number] 10mg Take 2 tablets by mouth every 8 hours as needed for Insomnia, Pain (scale 4-6) or Pain (scale 7-10). [facility] methocarbam oL 500 mg tablet 03-08 00:00: 00 03-23 04:59 :00 No [id number] 500mg Take 1 tablet by mouth 4 times daily for 14 days. [facility] diazePAM (VALIUM) tablet 5 mg diazePAM (VALIUM) tablet 5 mg 03-07 19:30: 00 03-08 06:14 :25 Yes 5mg 5 mg, Oral, Q8H, First dose on Sun03/07/25 at 1430, Until Discontinu ed, Routine [facility] cyclobenzap rine (FLEXERIL) tablet 10 mg cyclobenzap rine (FLEXERIL) tablet 10 mg 03-07 03:00: 00 03-08 21:40 :46 Yes 10mg 10 mg, Oral, Q8H, First dose (after last modificati on) on Sun03/06/25 at 2200, Until Discontinu ed, Routine [facility] morpHINE injection 2 mg morpHINE injection 2 mg 03-06 23:20: 44 03-08 21:40 :46 Yes 2mg 2 mg, Slow IV Push, Q6HPRN, Starting on Sun03/06/25 at 1820, Until 03/08/25 at 1640, Routine, for pain uncontroll ed by oral medication s [facility] polyethylen e glycol 3350 powder 17 g 03-06 22:26: 44 03-08 21:40 :46 No 17g 17 g, Oral, QDAILYPRN, Starting on Sun03/06/25 at 1726, Until Sun03/08/25 at 1640, Routine, Constipati on [facility] enoxaparin (LOVENOX) injection 40 mg enoxaparin (LOVENOX) injection 40 mg 03-06 22:00: 00 03-08 21:40 :46 Yes 40mg 40 mg, Subcutaneo us, DAILY AT 1700, First dose on Sun03/06/25 at 1700, Until Discontinu ed, Routine [facility] dextroamphe tamine-amph etamine (ADDERALL) 10 mg tablet 20 mg dextroamphe tamine-amph etamine (ADDERALL) 10 mg tablet 20 mg 03-06 14:00: 00 03-08 21:40 :46 Yes 20mg 20 mg, Oral, DAILY, First dose on Sun03/06/25 at 0900, Until Discontinu ed, Routine, wireless team member approving non-formul chidi medication : JASON JESSICA, Reason for non-formul chidi use: Patient supplied medication [facility] buPROPion XL (WELLBUTRIN XL) tablet 300 mg buPROPion XL (WELLBUTRIN XL) tablet 300 mg 03-06 14:00: 00 03-08 21:40 :46 Yes 300mg 300 mg, Oral, DAILY, First dose on Sun03/06/25 at 0900, Until Discontinu ed, Routine [facility] cetirizine (ZYRTEC) tablet 10 mg cetirizine (ZYRTEC) tablet 10 mg 03-06 14:00: 00 03-08 21:40 :46 Yes 10mg 10 mg, Oral, DAILY, First dose on Sun03/06/25 at 0900, Until Discontinu ed, Routine [facility] morpHINE injection 2 mg morpHINE injection 2 mg 03-06 04:15: 00 03-06 03:38 :00 Yes 2mg 2 mg, Slow IV Push, ONCE, 1 dose, On Sun03/05/25 at 2315, Routine [facility] acetaminoph en (TYLENOL) tablet 650 mg acetaminoph en (TYLENOL) tablet 650 mg 03-06 03:30: 00 03-08 21:40 :46 Yes 650mg 650 mg, Oral, Q6H, First dose (after last modificati on) on Sun03/05/25 at 2230, Until Discontinu ed, Routine [facility] gabapentin (NEURONTIN) tablet 600 mg gabapentin (NEURONTIN) tablet 600 mg 03-06 02:00: 00 03-08 21:40 :46 Yes 600mg 600 mg, Oral, QHS, First dose on Sun03/05/25 at 2100, Until Discontinu ed, Routine [facility] famotidine (PEPCID AC) tablet 20 mg famotidine (PEPCID AC) tablet 20 mg 03-06 01:00: 00 Yes 20mg 20 mg, Oral, BID, First dose on Sun03/05/25 at 2000, Until Discontinu ed, Routine [facility] docusate (COLACE) capsule 100 mg docusate (COLACE) capsule 100 mg 03-06 01:00: 00 Yes 100mg 100 mg, Oral, BID, First dose on Sun03/05/25 at 2000, Until Discontinu ed, Routine [facility] hydrOXYzine (ATARAX) tablet 50 mg hydrOXYzine (ATARAX) tablet 50 mg 03-06 01:00: 00 03-08 21:40 :46 Yes 50mg [facility] cyclobenzap rine (FLEXERIL) tablet 5 mg cyclobenzap rine (FLEXERIL) tablet 5 mg 03-06 01:00: 00 03-06 23:12 :55 Yes 5mg 5 mg, Oral, TID, First dose on Sun03/05/25 at 2000, Until Discontinu ed, Routine [facility] ceFAZolin (ANCEF) 2,000 mg in NaCl 0.9% (NS) 100 mL V2B IV Piggyback ceFAZolin (ANCEF) 2,000 mg in NaCl 0.9% (NS) 100 mL V2B IV Piggyback 03-05 20:30: 00 03-06 20:29 :00 Yes 2000mg 2,000 mg, IV Piggyback, Q8H ABX, 3 doses, First dose on Sun03/05/25 at 1530, Last dose on Sun03/06/25 at 0730, Administer over 30 Minutes, 100 mL, Reason for Anti-Infec tive: Surgical Prophylaxi s, Surgical Prophylaxi s: Neurosurge ry, Duration of therapy: within 24 hours of surgery [facility] methocarbam oL (ROBAXIN) injection 1,000 mg 03-05 20:15: 00 03-05 19:50 :00 No 1000mg 1,000 mg, Slow IV Push, Administer over 3-5 Minutes, ONCE, 1 dose, On Sun03/05/25 at 1515, RAY, PACU [facility] dexmedeTOMI Dine (PRECEDEX) injection 03-05 19:15: 00 03-05 19:34 :52 No Intravenou s, ONCE INTRA PROCEDURE, Starting on Sun03/05/25 at 1415, Until Sun03/05/25 at 1434, Routine, Intra-op [facility] oxyCODONE immediate release tablet 10 mg oxyCODONE immediate release tablet 10 mg 03-05 19:02: 39 03-08 21:40 :46 Yes 10mg 10 mg, Oral, Q4HPRN, Starting on Sun03/05/25 at 1402, Until Sun03/08/25 at 1640, Routine, Pain (scale 7-10), wireless team member approving Restricted medication : SNSNSURG [facility] oxyCODONE immediate release tablet 5 mg oxyCODONE immediate release tablet 5 mg 03-05 19:02: 29 03-08 21:40 :46 Yes 5mg 5 mg, Oral, Q4HPRN, Starting on Sun03/05/25 at 1402, Until [place] 03/08/25 at 1640, Routine, Pain (scale 4-6), wireless team member approving Restricted medication : SNSNSURG [facility] bisacodyL (DULCOLAX) suppository 10 mg bisacodyL (DULCOLAX) suppository 10 mg 03-05 19:00: 52 03-08 21:40 :46 Yes 10mg 10 mg, Rectal, QHSPRN, Starting on Sun03/05/25 at 1400, Until Sun03/08/25 at 1640, Routine, Constipati on [facility] NaCl 0.9% (NS) injection 5 mL 03-05 19:00: 52 03-08 21:40 :46 No 5mL 5 mL, Slow IV Push, PRN - SEE INSTRUCTIO NS, Starting on Sun03/05/25 at 1400, Until Sun03/08/25 at 1640, 10 mL [facility] acetaminoph en (OFIRMEV) IV piggyback 03-05 18:45: 00 03-05 19:33 :57 No IV Infusion, Administer over 15 Minutes, ONCE INTRA PROCEDURE, Starting on Sun03/05/25 at 1345, Until Jada 03/05/25 at 1433, Routine, Intra-op [facility] ondansetron (ZOFRAN (PF)) injection 03-05 18:45: 00 03-05 19:33 :57 No Slow IV Push, ONCE INTRA PROCEDURE, Starting on Sun03/05/25 at 1345, Until Jada 03/05/25 at 1433, Administer over 2-5 Minutes, Intra-op [facility] HYDROmorphO ne (DILAUDID) injection 03-05 18:40: 00 03-05 19:33 :57 No Slow IV Push, ONCE INTRA PROCEDURE, Starting on Sun03/05/25 at 1340, Until Jada 03/05/25 at 1433, Routine, Intra-op [facility] bupivacaine (preserv free) (SENSORCAIN E MPF) 0.25 % (2.5 mg/mL) 20 mL, BUPivacaine liposome (PF) (EXPAREL (PF)) 1.3 % (13.3 mg/mL) 266 mg 03-05 18:30: 00 03-05 19:17 :41 No PRN, Starting on Jada 03/05/25 at 1330, Intra-op [facility] sugammadex (BRIDION) injection 03-05 17:04: 00 03-05 19:33 :57 No IV Push, ONCE INTRA PROCEDURE, Starting on Jada 03/05/25 at 1204, Until Jada 03/05/25 at 1433, Routine, Intra-op [facility] thrombin topical solution 03-05 16:49: 00 03-05 19:17 :41 No PRN, Starting on Jada 03/05/25 at 1149, Until Jada 03/05/25 at 1417, Routine, Intra-op [facility] cyanocobala min, vitamin B-12, 3,000 mcg Cap 03-05 16:46: 24 Yes 1{tbl} Take 1 tablet by mouth in the morning. [facility] HYDROcodone -acetaminop hen 10-325 mg tablet 03-05 16:46: 24 03-08 00:00 :00 No 1{tbl} Take 1 tablet by mouth every 6 hours as needed. [facility] rocuronium (ZEMURON) injection 03-05 16:43: 00 03-05 19:33 :57 No IV Push, ONCE INTRA PROCEDURE, Starting on Jada 03/05/25 at 1143, Until Jada 03/05/25 at 1433, Routine, Intra-op [facility] clindamycin in 5 % dextrose (CLEOCIN) 900 mg/50 mL IV piggyback RTU 03-05 16:40: 00 03-05 19:33 :57 No IV Piggyback, ONCE INTRA PROCEDURE, Starting on Jada 03/05/25 at 1140, Until Jada 03/05/25 at 1433, Administer over 30 Minutes, Intra-op [facility] lidocaine-e pinephrine (XYLOCAINE WITH EPINEPHRINE ) 0.5 %-1:200,000 injection 03-05 16:35: 00 03-05 19:17 :41 No PRN, Starting on Jada 03/05/25 at 1135, Until Jada 03/05/25 at 1417, Routine, Intra-op [facility] remifentani L (ULTIVA) injection 03-05 16:12: 00 03-05 19:33 :57 No Slow IV Push, CONTINUOUS PRN, Starting on Jada 03/05/25 at 1112, Until Jada 03/05/25 at 1433, Routine, Intra-op [facility] vancomycin (VANCOCIN) injection 03-05 16:00: 00 03-05 19:17 :41 No PRN, Starting on Jada 03/05/25 at 1100, Until Jada 03/05/25 at 1417, Routine, Intra-op [facility] dexamethaso ne (DECADRON PHOSPHATE) 4 mg/mL injection 03-05 15:50: 00 03-05 19:33 :57 No Intravenou s, ONCE INTRA PROCEDURE, Starting on Jada 03/05/25 at 1050, Until Jada 03/05/25 at 1433, Routine, Intra-op [facility] succinylcho line (QUELICIN) injection 03-05 15:33: 00 03-05 19:33 :57 No IV Push, ONCE INTRA PROCEDURE, Starting on Jada 03/05/25 at 1033, Until [place]ada 03/05/25 at 1433, Routine, Intra-op [facility] propofoL IV infusion 03-05 15:33: 00 03-05 19:33 :57 No Intravenou s, ONCE INTRA PROCEDURE, Starting on Jada 03/05/25 at 1033, Intra-op [facility] lidocaine 1% (XYLOCAINE) 100 mg/10 mL (1 %) injection 03-05 15:33: 00 03-05 19:33 :57 No Intravenou s, ONCE INTRA PROCEDURE, Starting on Jada 03/05/25 at 1033, Until [place]ada 03/05/25 at 1433, Routine, [facility] FENT[facility] (PF[facility] (SUBLIMAZE) injection 03-05 15:33: 00 03-05 19:33 :57 No Intravenou s, ONCE INTRA PROCEDURE, Starting on Jada 03/05/25 at 1033, Until Jada 03/05/25 at 1433, Routine, Intra-op [facility] midazolam (VERSED) 1 mg/mL injection 03-05 15:25: 00 03-05 19:33 :57 No IV Push, ONCE INTRA PROCEDURE, Starting on Jada 03/05/25 at 1025, Until Jada 03/05/25 at 1433, Routine, Intra-op [facility] lactated ringers IV infusion 03-05 15:19: 00 03-05 19:33 :57 No IV Infusion, CONTINUOUS PRN, Starting on Jada 03/05/25 at 1019, Until [place]ada 03/05/25 at 1433, Routine, Intra-op [facility] ketorolac (TORADOL) injection 30 mg 01-29 21:15: 00 01-29 20:23 :00 No 30mg 30 mg, Intramuscu lar, ONCE, 1 dose, On Sun01/29/25 at 1615, Routine [facility] dexamethaso ne sod phos PF injection 10 mg 01-29 20:15: 00 01-29 20:22 :00 No 10mg 10 mg, Oral, ONCE, 1 dose, On Jada 01/29/25 at 1515, 1 mL [facility] HYDROcodone -acetaminop hen (NORCO 5) 5-325 mg tablet 1 tablet 01-29 20:15: 00 01-29 20:22 :00 No 1{tbl} 1 tablet, Oral, ONCE, 1 dose, On Sun01/29/25 at 1515, RAY [facility] cyclobenzap rine 5 mg tablet 01-29 00:00: 03-08 00:00 :00 No [id number] 5mg Take 1 tablet by mouth in the morning and 1 tablet at noon and 1 tablet in the evening. [facility] ibuprofen 600 mg tablet 01-29 00:00: 00 03-08 00:00 :00 No [id number] 600mg Take 1 tablet by mouth in the morning and 1 tablet at noon and 1 tablet in the evening. Take with meals. [facility] Austedo XR 6 MG tablet sustained-r elease 24 hour 12-06 00:00: 00 01-14 00:00 :00 No [id number] TAKE 1 TABLET BY MOUTH DAILY WITH 24MG TABLET [facility] Austedo XR 24 MG tablet sustained-r elease 24 hour 12-06 00:00: 00 01-14 00:00 :00 No [id number] TAKE 1 TABLET BY MOUTH DAILY WITH 6MG TABLET [facility] TETRACYCLIN E HCL PO 2022-07 13:01: 09 05-14 00:00 :00 No Take by mouth. Take 1 tablet twice daily [facility] valbenazine tosylate (Ingrezza) 80 MG capsule 2022-07 13:01: 03 05-14 00:00 :00 No 80mg QD Take 80 mg by mouth 1 (one) time each day. [facility] Lisdexamfet amine Dimesylate (VYVANSE PO) 2022-07 13:00: 34 Yes Take by mouth. Take 1 daily [facility] Deutetraben azine ER (Austedo XR) 24 MG tablet sustained-r elease 24 hour 2022-07 00:00: 00 07-14 05:59 :00 No [id number] 24mg QD Take 24 mg by mouth 1 (one) time each day. Please take 30mg daily [facility] Deutetraben azine ER (Austedo XR) 6 MG tablet sustained-r elease 24 hour 2022-07 00:00: 00 07-14 05:59 :00 No [id number] 6mg QD Take 6 mg by mouth 1 (one) time each day. Take 30mg total daily [facility] Austedo 12 MG tablet 2022-07 0- 00:00: 00 05-14 00:00 :00 No [id number] TAKE 1 TABLET(12 MG) BY MOUTH IN THE MORNING AND IN THE EVENING [facility] valbenazine tosylate (Ingrezza) 80 MG capsule 12-25 13:05: 51 Yes 80mg QD Take 80 mg by mouth 1 (one) time each day. [facility] deutetraben azine (Austedo) 12 MG tablet 09-28 00:00: 00 09-28 04:59 :00 No [id number] 12mg Q.5D Take 1 tablet (12 mg total) by mouth in the morning and 1 tablet (12 mg total) in the evening. [facility] Lisdexamfet amine Dimesylate (VYVANSE PO) 09-27 10:51: 30 Yes Take by mouth. Take 1 daily [facility] Lisdexamfet amine Dimesylate (VYVANSE PO) 08-02 13:38: 13 Yes Take by mouth. Take 1 daily [facility] TETRACYCLIN E HCL PO 08-02 13:37: 35 Yes Take by mouth. Take 1 tablet twice daily [facility] TETRACYCLIN E HCL PO 2021-07 09:33: 17 Yes Take by mouth. Take 1 tablet twice daily [facility] valbenazine tosylate (Ingrezza) 80 MG capsule 2021-07 00:00: 00 09-27 00:00 :00 No [id number] 80mg QD Take 1 capsule (80 mg total) by mouth 1 (one) time each day. [facility] buPROPion XL (Wellbutrin XL) 300 MG 24 hr tablet 2021-07 00:00: 00 Yes 300mg QD Take 300 mg by mouth 1 (one) time each day. [facility] gabapentin (Neurontin) 600 MG tablet 2021-07- 00:00: 00 Yes 600mg QD Take 600 mg by mouth 1 (one) time each day. [facility] triamcinolo ne acetonide (KENALOG) injection 40 mg 01-20 21:00: 00 01-20 19:59 :00 No [id number] 40mg [facility] cetirizine (ZYRTEC) 10 mg tablet 01-20 00:00: 00 Yes [id number] 10mg Take 1 tablet by mouth daily. [facility] acetaminoph en-codeine 300-30 mg tablet 01-11 00:00: 00 03-08 00:00 :00 No TAKE 1 TABLET BY MOUTH EVERY 4-8 HOURS NEEDED FOR PAIN [facility] diazePAM 2 mg tablet 01-11 00:00: 00 03-08 00:00 :00 No [facility] hydrOXYzine 50 mg tablet 01-06 00:00: 00 Yes 50mg Take 1 tablet by mouth in the morning and 1 tablet at noon and 1 tablet in the evening. [facility] buPROPion XL 300 mg 24 hr tablet 01-05 00:00: 00 Yes 300mg Take 1 tablet by mouth in the morning. [facility] gabapentin 600 mg tablet 01-05 00:00: 00 Yes 600mg Take 1 tablet by mouth at bedtime. [facility] clindamycin 300 mg capsule 01-04 00:00: 00 03-08 00:00 :00 No TAKE ONE CAPSULE BY MOUTH THREE TIMES DAILY UNTIL ALL TAKEN [facility] ibuprofen 800 mg tablet 01-04 00:00: 00 01-29 00:00 :00 No TAKE 1 TABLET BY MOUTH EVERY 6 TO 8 HOURS NEEDED FOR PAIN [facility] methylPREDN ISolone 4 mg tablets 01-04 00:00: 00 01-20 00:00 :00 No TAKE DIRECTED [facility] famciclovir 500 mg tablet 12-28 00:00: 00 03-08 00:00 :00 No TAKE 1 TABLET BY MOUTH TWICE DAILY FOR 4 WEEKS [facility] dextroamphe tamine-amph etamine 20 mg tablet 6-14 00:00: 00 Yes 20mg Take 1 tablet by mouth in the morning. [facility] traZODone 150 mg tablet 4-14 00:00: 00 Yes [facility] metroNIDAZO LE 500 MG Oral Tablet metroNIDAZO LE 500 MG Oral Tablet 10-10 00:00: 00 Yes WILLIAM WALKER M.D. Take one tablet po bid for 7 days [facility] Wellbutrin TABS Wellbutrin TABS Yes R.N. [facility] Adderall TABS Adderall TABS Yes R.N. [facility] carBAMazepi ne TABS carBAMazepi ne TABS Yes R.N. [facility] Gabapentin TABS Gabapentin TABS Yes R.N. [facility] traZODone HCl TABS traZODone HCl TABS Yes R.N. [facility] Immunizations Ordered Immunization Name Filled Immunization Name Date Status Comments Source Influenza, seasonal, injectable 2022-05-16 00:00:00 Completed [facility] Influenza, seasonal, injectable 2022-05-16 00:00:00 Completed [facility] Influenza, seasonal, injectable 2022-05-16 00:00:00 Completed [facility] Influenza, seasonal, injectable 2022-05-16 00:00:00 Completed [facility] Novel [id number], all formulations 2009-06-26 00:00:00 Completed [place] [facility] Novel Dqepwjgxh-[id number], all formulations 2009-06-26 00:00:00 Completed [facility] Influenza, seasonal, injectable Unknown Completed [facility] Novel Zrpzlitmi-[id number], all formulations Unknown Completed [facility] Influenza, seasonal, injectable Unknown Completed [facility] Novel Ufcennkrr-[id number], all formulations Unknown Completed [facility] Influenza, seasonal, injectable Unknown Completed [facility] Novel Brkrtoedg-[id number], all formulations Unknown Completed [facility] Vital Signs Vital Name Observation Time Observation Value Comments Reid pritchett Systolic blood pressure 2025-03-18 16:27:00 118 mm[Hg] [facility] Diastolic blood pressure 2025-03-18 16:27:00 78 mm[Hg] [facility] Heart rate 2025-03-18 16:27:00 81 /min [facility] Body weight 2025-03-18 16:27:00 59.648 kg [facility] BMI 2025-03-18 16:27:00 22.57 kg/m2 [facility] Oxygen saturation in Arterial blood by Pulse oximetry 2025-03-18 16:27:00 98 /min [facility] Systolic blood pressure 2025-03-08 16:12:00 105 mm[Hg] [facility] Diastolic blood pressure 2025-03-08 16:12:00 51 mm[Hg] [facility] Heart rate 2025-03-08 16:12:00 91 /min [facility] Body temperature 2025-03-08 16:12:00 37.78 Lalita [facility] Respiratory rate 2025-03-08 16:12:00 18 /min [facility] Oxygen saturation in Arterial blood by Pulse oximetry 2025-03-08 16:12:00 94 /min [facility] Body height 2025-03-05 21:58:00 162.6 cm [facility] Body weight 2025-03-05 21:58:00 60.9 kg [facility] BMI 2025-03-05 21:58:00 23.05 kg/m2 [facility] Systolic blood pressure 2025-03-05 20:00:00 144 mm[Hg] [facility] Diastolic blood pressure 2025-03-05 20:00:00 75 mm[Hg] [facility] Heart rate 2025-03-05 20:00:00 54 /min [facility] Respiratory rate 2025-03-05 20:00:00 24 /min [facility] Oxygen saturation in Arterial blood by Pulse oximetry 2025-03-05 20:00:00 100 /min [facility] Body temperature 2025-03-05 19:17:00 36.61 Lalita [facility] Body height 2025-03-05 12:56:00 162.6 cm [facility] Body weight 2025-03-05 12:56:00 60.9 kg [facility] BMI 2025-03-05 12:56:00 23.05 kg/m2 [facility] Systolic blood pressure 2025-02-20 18:05:00 129 mm[Hg] [facility] Diastolic blood pressure 2025-02-20 18:05:00 68 mm[Hg] [facility] Heart rate 2025-02-20 18:05:00 75 /min [facility] Body temperature 2025-02-20 18:05:00 36.11 Lalita [facility] Respiratory rate 2025-02-20 18:05:00 18 /min [facility] Body height 2025-02-20 18:05:00 162.6 cm [facility] Body weight 2025-02-20 18:05:00 61.689 kg [facility] BMI 2025-02-20 18:05:00 23.34 kg/m2 [facility] Oxygen saturation in Arterial blood by Pulse oximetry 2025-02-20 18:05:00 100 /min [facility] Systolic blood pressure 2025-02-11 14:28:00 148 mm[Hg] [facility] Diastolic blood pressure 2025-02-11 14:28:00 70 mm[Hg] [facility] Heart rate 2025-02-11 14:27:00 50 /min [facility] Body temperature 2025-02-11 14:27:00 36.11 Llaita [facility] Respiratory rate 2025-02-11 14:27:00 18 /min [facility] Body height 2025-02-11 14:27:00 162.6 cm [facility] Body weight 2025-02-11 14:27:00 61.961 kg [facility] BMI 2025-02-11 14:27:00 23.45 kg/m2 [facility] Oxygen saturation in Arterial blood by Pulse oximetry 2025-02-11 14:27:00 100 /min [facility] Systolic blood pressure 2025-01-29 22:30:00 142 mm[Hg] [facility] Diastolic blood pressure 2025-01-29 22:30:00 67 mm[Hg] [facility] Heart rate 2025-01-29 22:30:00 57 /min [facility] Body temperature 2025-01-29 22:30:00 36.72 Lalita [facility] Respiratory rate 2025-01-29 22:30:00 16 /min [facility] Oxygen saturation in Arterial blood by Pulse oximetry 2025-01-29 22:30:00 99 /min [facility] Body height 2025-01-29 18:52:00 162.6 cm [facility] Body weight 2025-01-29 18:52:00 58.968 kg [facility] BMI 2025-01-29 18:52:00 22.31 kg/m2 [facility] Systolic blood pressure 2022-09-27 15:48:00 123 mm[Hg] [facility] Diastolic blood pressure 2022-09-27 15:48:00 76 mm[Hg] [facility] Heart rate 2022-09-27 15:48:00 59 /min [facility] Body temperature 2022-09-27 15:48:00 36.83 Lalita [facility] Respiratory rate 2022-09-27 15:48:00 18 /min [facility] Body height 2022-09-27 15:48:00 162.6 cm [facility] Body weight 2022-09-27 15:48:00 69.4 kg [facility] BMI 2022-09-27 15:48:00 26.26 kg/m2 [facility] Oxygen saturation in Arterial blood by Pulse oximetry 2022-09-27 15:48:00 100 /min [facility] Systolic blood pressure 2022-08-02 19:34:00 142 mm[Hg] [facility] Diastolic blood pressure 2022-08-02 19:34:00 81 mm[Hg] [facility] Heart rate 2022-08-02 19:34:00 65 /min [facility] Body temperature 2022-08-02 19:34:00 35.78 Lalita [facility] Body height 2022-08-02 19:34:00 162.6 cm [facility] Body weight 2022-08-02 19:34:00 68.947 kg [facility] BMI 2022-08-02 19:34:00 26.09 kg/m2 [facility] Systolic blood pressure 2022-07-06 15:26:00 114 mm[Hg] [facility] Diastolic blood pressure 2022-07-06 15:26:00 80 mm[Hg] [facility] Heart rate 2022-07-06 15:26:00 55 /min [facility] Body temperature 2022-07-06 15:26:00 35.67 Lalita [facility] Body height 2022-07-06 15:26:00 162.6 cm [facility] Body weight 2022-07-06 15:26:00 68.04 kg [facility] BMI 2022-07-06 15:26:00 25.75 kg/m2 [facility] Systolic blood pressure 2022-01-20 19:39:00 122 mm[Hg] [facility] Diastolic blood pressure 2022-01-20 19:39:00 75 mm[Hg] [facility] Heart rate 2022-01-20 19:39:00 88 /min [facility] Body temperature 2022-01-20 19:39:00 36.94 Lalita [facility] Respiratory rate 2022-01-20 19:39:00 16 /min [facility] Body height 2022-01-20 19:39:00 162.6 cm [facility] Body weight 2022-01-20 19:39:00 68.675 kg [facility] BMI 2022-01-20 19:39:00 25.99 kg/m2 [facility] Oxygen saturation in Arterial blood by Pulse oximetry 2022-01-20 19:39:00 98 /min [facility] Systolic blood pressure 2025-03-18 16:27:00 118 mm[Hg] [facility] Diastolic blood pressure 2025-03-18 16:27:00 78 mm[Hg] [facility] Heart rate 2025-03-18 16:27:00 81 /min [facility] Body weight 2025-03-18 16:27:00 59.648 kg [facility] BMI 2025-03-18 16:27:00 22.57 kg/m2 [facility] Oxygen saturation in Arterial blood by Pulse oximetry 2025-03-18 16:27:00 98 /min [facility] Body temperature 2025-03-08 16:12:00 37.78 Lalita [facility] Respiratory rate 2025-03-08 16:12:00 18 /min [facility] Body height 2025-03-05 21:58:00 162.6 cm [facility] BP Systolic 2018-10-09 15:52:00 113 mm[Hg] Location: LUE; Position: Sitting [facility] BP Diastolic 2018-10-09 15:52:00 71 mm[Hg] Location: LUE; Position: Sitting [facility] Height 2018-10-09 15:52:00 64 [in_us] [facility] Weight 2018-10-09 15:52:00 141 [lb_av] [facility] Body Mass Index Calculated 2018-10-09 15:52:00 24.2 kg/m2 [facility] Temperature 2018-10-09 15:52:00 98.6 [degF] Method: Oral [facility] Heart Rate 2018-10-09 15:52:00 73 /min Location: L Brachial Artery; [facility] Procedures Procedure Date / Time Performed Performing Clinician Source INTRAOPERATIVE EVOKED POTENTIAL STUDY 2025-03-11 13:41:07 Doctor Unassigned, Donnelly [facility] PHOSPHORUS 2025-03-08 11:21:00 Max Miranda [facility] MAGNESIUM 2025-03-08 11:21:00 Max Miranda [facility] BASIC METABOLIC PANEL (NA, K, CL, CO2, GLUCOSE, BUN, CREATININE, CA) 2025-03-08 11:21:00 Felipa Miranda [facility] BASIC METABOLIC PANEL (NA, K, CL, CO2, GLUCOSE, BUN, CREATININE, CA) 2025-03-08 11:21:00 Felipa Miranda [facility] MAGNESIUM 2025-03-08 11:21:00 Max Miranda [facility] PHOSPHORUS 2025-03-08 11:21:00 Max Miranda [facility] CBC WITH DIFF 2025-03-08 11:20:00 Max Miranda [facility] CBC WITH DIFF 2025-03-08 11:20:00 Max Miranda [facility] XR LUMBAR SPINE 2 VW 2025-03-06 16:09:43 Kassie Abernathy [facility] XR SPINE THORACIC 2 VW 2025-03-06 16:09:43 Lico Abernathy [facility] XR LUMBAR SPINE 2 VW 2025-03-06 16:09:43 Kassie Abernathy [facility] XR SPINE THORACIC 2 VW 2025-03-06 16:09:43 Lico Abernathy [facility] XR LUMBAR SPINE 2 VW 2025-03-06 16:09:43 Kassie Abernathy [facility] XR SPINE THORACIC 2 VW 2025-03-06 16:09:43 Lico Abernathy [facility] BASIC METABOLIC PANEL (NA, K, CL, CO2, GLUCOSE, BUN, CREATININE, CA) 2025-03-06 10:12:00 George [facility] CBC WITHOUT DIFF 2025-03-06 10:12:00 George [facility] BASIC METABOLIC PANEL (NA, K, CL, CO2, GLUCOSE, BUN, CREATININE, CA) 2025-03-06 10:12:00 George [facility] CBC WITHOUT DIFF 2025-03-06 10:12:00 [facility] BASIC METABOLIC PANEL (NA, K, CL, CO2, GLUCOSE, BUN, CREATININE, CA) 2025-03-06 10:12:00 George [facility] CBC WITHOUT DIFF 2025-03-06 10:12:00 George [facility] FL TIME OR (NON-REPORTABLE) 2025-03-05 18:40:10 [facility] [place] TIME OR (NON-REPORTABLE) 2025-03-05 18:40:10 [facility] FL TIME OR (NON-REPORTABLE) 2025-03-05 18:40:10 [facility] FL TIME OR (NON-REPORTABLE) 2025-03-05 18:39:06 [facility] FL TIME OR (NON-REPORTABLE) 2025-03-05 18:39:06 [facility] FL TIME OR (NON-REPORTABLE) 2025-03-05 18:39:06 [facility] INTUBATION 2025-03-05 15:34:00 Pawan Machado [facility] INTUBATION 2025-03-05 15:34:00 [facility] [id number] [facility] [place] ARTHRODESIS POSTERIOR/PSTLAT TQ 1NTRSP THORACIC 2025-03-05 15:05:00 [facility] [id number] - [place] POSTERIOR NON-SEGMENTAL INSTRUMENTATION 2025-03-05 15:05:00 [facility] [address]68 - [place] STEREOTACTIC COMPUTER ASSISTED PX SPINAL 2025-03-05 15:05:00 [facility] 57258 - [place] AUTOGRAFT SPINE SURGERY LOCAL FROM SAME INCISION 2025-03-05 15:05:00 [facility] [address] - [place] MASON EXC/EVAC ISPI LES OTH/THN MARTHA XDRL THORACIC 2025-03-05 15:05:00 [facility] [address]703 - [place] ARTHRODESIS POSTERIOR/PSTLAT TQ 1NTRSP THORACIC 2025-03-05 15:05:00 [facility] 23709 - [place] POSTERIOR NON-SEGMENTAL INSTRUMENTATION 2025-03-05 15:05:00 [facility] [address]98 - [place] STEREOTACTIC COMPUTER ASSISTED PX SPINAL 2025-03-05 15:05:00 [facility] [address]28 - [place] AUTOGRAFT SPINE SURGERY LOCAL FROM SAME INCISION 2025-03-05 15:05:00 [facility] 49560 - [place] MASON EXC/EVAC ISPI LES OTH/THN MARTHA XDRL THORACIC 2025-03-05 15:05:00 [facility] 21342 - [place] ARTHRODESIS POSTERIOR/PSTLAT TQ 1NTRSP THORACIC 2025-03-05 15:05:00 [facility] [address] - [place] POSTERIOR NON-SEGMENTAL INSTRUMENTATION 2025-03-05 15:05:00 [facility] [address] - [place] STEREOTACTIC COMPUTER ASSISTED PX SPINAL 2025-03-05 15:05:00 [facility] 15786 - [place] AUTOGRAFT SPINE SURGERY LOCAL FROM SAME INCISION 2025-03-05 15:05:00 [facility] 16162 - [place] MASON EXC/EVAC ISPI LES OTH/THN MARTHA XDRL THORACIC 2025-03-05 15:05:00 Jason Jessica [facility] BASIC METABOLIC PANEL (NA, K, CL, CO2, GLUCOSE, BUN, CREATININE, CA) 2025-03-05 13:18:00 Felipa Miranda [facility] CBC WITH DIFF 2025-03-05 13:18:00 Max Miranda [facility] PROTHROMBIN TIME / INR 2025-03-05 13:18:00 Felipa Li [facility] ACTIVATED PARTIAL THRMPLAS TEJ 2025-03-05 13:18:00 Felipa Miranda [facility] HB ABO GROUPING 2025-03-05 13:18:00 Mirlande Mendez [facility] BASIC METABOLIC PANEL (NA, K, CL, CO2, GLUCOSE, BUN, CREATININE, CA) 2025-03-05 13:18:00 Felipa Miranda [facility] CBC WITH DIFF 2025-03-05 13:18:00 Max Miranda [facility] PROTHROMBIN TIME / INR 2025-03-05 13:18:00 Felipa Li [facility] ACTIVATED PARTIAL THRMPLAS TEJ 2025-03-05 13:18:00 Felipa Miranda [facility] HB ABO GROUPING 2025-03-05 13:18:00 Mirlande Mendez [facility] HB ABO GROUPING 2025-03-05 13:18:00 Mirlande Mendez [facility] ACTIVATED PARTIAL THRMPLAS TEJ 2025-03-05 13:18:00 Felipa Miranda [facility] PROTHROMBIN TIME / INR 2025-03-05 13:18:00 Felipa Li [facility] BASIC METABOLIC PANEL (NA, K, CL, CO2, GLUCOSE, BUN, CREATININE, CA) 2025-03-05 13:18:00 Felipa Miranda [facility] CBC WITH DIFF 2025-03-05 13:18:00 Max Miranda [facility] HB ABO GROUPING 2025-03-03 15:40:00 Mirlande Mendez [facility] MR THORACIC SPINE WO CONTRAST 2025-02-21 00:11:56 Tori Sun [facility] CT LUMBAR SPINE WO CONTRAST 2025-01-29 19:55:47 Shira Ho [facility] CT LUMBAR SPINE WO CONTRAST 2025-01-29 19:55:47 Shira Ho [facility] . [facility] - PAP 2018-10-10 00:00:00 [facility] . [facility] - Affirm VPIII (BV Panel) 2018-10-10 00:00:00 [facility] [Q] HEPATITIS B SURFACE ANTIGEN W/REFL CONFIRM 2018-10-09 00:00:00 [facility] [Q] HIV AB, HIV 1/2, EIA, WITH REFLEXES 2018-10-09 00:00:00 [facility] [QL] HEPATITIS C ANTIBODY 2018-10-09 00:00:00 [facility] [QL] RPR 2018-10-09 00:00:00 [facility] History of Uterine nerve ablation [facility] History of Orthopedic surgery [facility] History of Knee surgery [facility] History of Spinal surgery [facility] Plan of Care Planned Activity Planned Date Details Comments Source Diagnostic Test Pending 2018-10-10 00:00:00 . [facility] - PAP [code = . [facility] - PAP] [facility] Diagnostic Test Pending 2018-10-10 00:00:00 . [facility] - Affirm VPIII (BV Panel) [code = . [facility] - Affirm VPIII (BV Panel)] [facility] Encounters Start Date/Time End Date/Time Encounter Type Admission Type Attending Clinicians Care Facility Care Department Encounter ID Source 2022-12-18 08:26:19 Outpatient [facility] [id number] [facility] 2022-12-15 11:09:16 Outpatient [facility] [id number] [facility] 2022-10-16 14:05:14 Outpatient [facility] [id number] [facility] 2022-10-11 08:49:55 Outpatient [facility] [id number] [facility] 2022-09-21 09:53:24 Outpatient [facility] [id number] [facility] 2022-08-01 08:44:31 Outpatient [facility] [id number] [facility] 2022-07-06 09:19:58 Outpatient [facility] [id number] [facility] 2022-07-04 07:52:03 Outpatient [facility] [id number] [facility] 2022-07-01 08:57:54 Outpatient [facility] [id number] [facility] 2022-06-30 11:01:09 Outpatient [facility] [id number] [facility] 2022-05-30 08:06:19 Outpatient [facility] [id number] [facility] 2025-04-13 00:00:00 2025-04-14 08:07:19 Telephone Tori Sun [facility] 1.2.840.114 350.1.13.10 4.2.7.2.686 [id number] [facility] 2025-03-25 00:00:00 2025-03-26 16:51:27 Telephone Brandi Woods [facility] 1.2.840.114 350.1.13.10 4.2.7.2.686 [id number] [facility] 2025-03-26 00:00:00 2025-03-26 16:20:53 Telephone Tori Sun [facility] 1.2.840.114 350.1.13.10 4.2.7.2.686 [id number] [facility] 2025-03-18 11:30:00 2025-03-18 12:21:20 Office Visit Tori Davenport 1.2.840.1 83970.1.1 3.104.2.7 .3.330178 .8 [id number] [facility] 2025-03-18 00:00:00 2025-03-18 00:00:00 Travel 1.2.840.1 81410.1.1 3.104.2.7 .3.085574 .8 1.2.840.114 350.1.13.10 4.2.7.3.698 084.8 [id number] [facility] 2025-03-10 00:00:00 2025-03-10 16:47:26 Telephone Tori Sun 1.2.840.1 68488.1.1 3.104.2.7 .3.053983 .8 [id number] [facility] 2025-03-05 07:42:00 2025-03-08 15:30:00 Hospital Encounter R Jason Jessica 1.2.840.1 [id number] 3.104.2.7 .3.149400 .8 [id number] [facility] 2025-03-05 09:37:00 2025-03-05 15:02:00 Surgery Jason Jessica 1.2.840.1 04288.1.1 3.104.2.7 .3.067484 .8 [id number] [facility] 2025-03-05 10:25:00 2025-03-05 14:23:00 Anesthesia Event Jaime-Jose Luis Jones er, Lashay bobby, [facility] ([facility]) 1.2.840.114 350.1.13.10 4.2.7.2.686 [id number] [facility] 2025-03-05 00:00:00 2025-03-05 00:00:00 Travel 1.2.840.1 61814.1.1 3.104.2.7 .3.355127 .8 1.2.840.114 350.1.13.10 4.2.7.3.698 084.8 [id number] [facility] 2025-03-03 00:00:00 2025-03-03 14:26:38 Telephone Tori Sun 1.2.840.1 17426.1.1 3.104.2.7 .3.795212 .8 [id number] [facility] 2025-03-03 10:15:00 2025-03-03 10:30:00 Filling Hauler Visit Mirlande Lawrence 1.2.840.1 32285.1.1 3.104.2.7 .3.141850 .8 [id number] [facility] 2025-02-27 00:00:00 2025-02-27 00:00:00 Travel 1.2.840.1 77637.1.1 3.104.2.7 .3.608507 .8 1.2.840.114 350.1.13.10 4.2.7.3.698 084.8 [id number] [facility] 2025-02-23 00:00:00 2025-02-25 09:43:47 Telephone Jason Jessica 1.2.840.1 95781.1.1 3.104.2.7 .3.249186 .8 [id number] [facility] 2025-02-24 14:50:00 2025-02-24 14:55:00 Pre-Anesth esia Evaluation R [facility] Phone [facility] ([facility]) 1.2.840.114 350.1.13.10 4.2.7.2.686 [id number] [facility] 2025-02-20 15:02:16 2025-02-20 23:59:00 Hospital Encounter Tori Davenport 1.2.840.1 11906.1.1 3.104.2.7 .3.975205 .8 [id number] [facility] 2025-02-20 13:00:00 2025-02-20 13:30:00 Office Visit R Jessica, Jason 1.2.840.1 55972.1.1 3.104.2.7 .3.942597 .8 [id number] [facility] 2025-02-20 00:00:00 2025-02-20 00:00:00 Travel 1.2.840.1 39505.1.1 3.104.2.7 .3.595998 .8 1.2.840.114 350.1.13.10 4.2.7.3.698 084.8 [id number] [facility] 2025 00:00:00 2025-02-18 10:06:42 Jason Srivastava 1.2.840.1 68697.1.1 3.104.2.7 .3.111727 .8 [id number] [facility] 2025-02-11 09:00:00 2025-02-11 09:30:00 Office Visit Tori Davenport 1.2.840.1 92380.1.1 3.104.2.7 .3.821235 .8 [id number] [facility] 2025-02-11 00:00:00 2025-02-11 00:00:00 Travel 1.2.840.1 18464.1.1 3.104.2.7 .3.771499 .8 1.2.840.114 350.1.13.10 4.2.7.3.698 084.8 [id number] [facility] 2025-01-29 13:56:00 2025-01-29 17:38:00 Emergency X Shira Ho 1.2.840.1 81757.1.1 3.104.2.7 .3.567213 .8 [id number] [facility] 2025-01-29 00:00:00 2025-01-29 00:00:00 Travel 1.2.840.1 39588.1.1 3.104.2.7 .3.316123 .8 1.2.840.114 350.1.13.10 4.2.7.3.698 084.8 [id number] [facility] 2024-08-04 13:00:00 2024-08-04 13:00:00 Outpatient [facility] [id number] [facility] 2024-01-15 09:30:00 2024-01-15 09:48:25 Telemedici ne Queenie Cross [facility] [id number] 1.2.840.114 350.1.13.58 9.2.7.2.686 [id number] [facility] 2023-12-31 13:00:00 2023-12-31 13:00:00 Outpatient [facility] [id number] [facility] 2023-08-14 10:30:00 2023-08-14 10:39:02 Telemedici ne Queenie Cross [facility] [address] 1.2.840.114 350.1.13.58 9.2.7.2.686 [id number] [facility] 2023-05-14 13:00:00 2023-05-14 13:14:00 Telemedici Queenie Khan [facility] [address] 1.2.840.114 350.1.13.58 9.2.7.2.686 [id number] [facility] 2023-04-27 13:00:00 2023-04-27 13:00:00 Outpatient AMERICA QUEENIE [facility] [id number] [facility] 2022-12-25 13:00:00 2022-12-25 13:20:14 Telemedici Queenie Khan [facility] [address] 1.2.840.114 350.1.13.58 9.2.7.2.686 [id number] [facility] 2022-11-27 11:00:00 2022-11-27 11:00:00 Outpatient JANNETH CROSSATI [facility] [id number] [facility] 2022-10-16 12:30:00 2022-10-18 11:24:25 Outpatient VERONICA WOODS [facility] [id number] [facility] 2022-09-27 11:00:00 2022-09-27 11:24:10 Office Visit Qeuenie Cross [facility] [address] 1.2.840.114 350.1.13.58 9.2.7.2.686 [id number] [facility] 2022-08-30 13:30:00 2022-08-30 13:30:00 Outpatient [facility] [id number] [facility] 2022-08-21 10:00:00 2022-08-21 10:03:29 Telemedici ne Queenie Cross [facility] [address] 1.2.840.114 350.1.13.58 9.2.7.2.686 [id number] [facility] 2022-08-02 13:30:00 2022-08-02 15:52:29 Office Visit Mary Villegasth [facility] [address] 1.2.840.114 350.1.13.58 9.2.7.2.686 [id number] [facility] 2022-07-06 10:00:00 2022-07-06 10:58:16 Office Visit Queenie Cross [facility] [address] 1.2.840.114 350.1.13.58 9.2.7.2.686 [id number] [facility] 2022-01-20 14:40:00 2022-01-20 14:46:27 Urgent Care Susana Arteaga [facility] 1.2.840.114 350.1.13.10 4.2.7.2.686 [id number] [facility] 2022-01-20 14:40:00 2022-01-20 14:46:27 Outpatient R SUSANA ARTEAGA [facility] [id number] [facility] 2018-10-22 09:08:00 2018-10-22 09:08:00 [place] [id number] [facility] 2018-10-09 15:30:00 2018-10-09 15:30:00 Appointmen lambert; WILLIAM WALKER M.D. DURRANI, SADIA, M.D. [facility] [employer] [id number] [facility] Results Test Description Test Time Test Comments Results Resul t Comments Source INTRAOPERATIVE EVOKED POTENTIAL STUDY 2025-02-14 7 13:41:07 Ordered by an unspecified provider. [facility] [id number] 20:47:05XR THORACIC SPINE 2 VW, XR LUMBAR SPINE 2 VW HISTORY: Female 60 years s/p laminectomy and fusion Upright xrays COMPARISON: None FINDINGS: Postsurgical changes of T11-T12 posterior spinal fusion are noted withoutevidence of hardware complication. The thoracolumbar vertebral bodies are normal in height and in normalalignment. Minimal thoracolumbar degenerative changes are present. [facility]osseous abnormality.[facility] [id number] 20:47:05XR THORACIC SPINE 2 VW, XR LUMBAR SPINE 2 VW HISTORY: Female 60 years s/p laminectomy and fusion Upright xrays COMPARISON: None FINDINGS: Postsurgical changes of T11-T12 posterior spinal fusion are noted withoutevidence of hardware complication. The thoracolumbar vertebral bodies are normal in height and in normalalignment. Minimal thoracolumbar degenerative changes are present. No acuteosseous abnormality.[facility] 2 [id number] 20:47:05XR THORACIC SPINE 2 VW, XR LUMBAR SPINE 2 VW HISTORY: Female 60 years s/p laminectomy and fusion Upright xrays COMPARISON: None FINDINGS: Postsurgical changes of T11-T12 posterior spinal fusion are noted withoutevidence of hardware complication. The thoracolumbar vertebral bodies are normal in height and in normalalignment. Minimal thoracolumbar degenerative changes are present. No acuteosseous abnormality. [facility] 2 [id number] 20:47:05XR THORACIC SPINE 2 VW, XR LUMBAR SPINE 2 VW HISTORY: Female 60 years s/p laminectomy and fusion Upright xrays COMPARISON: None FINDINGS: Postsurgical changes of T11-T12 posterior spinal fusion are noted withoutevidence of hardware complication. The thoracolumbar vertebral bodies are normal in height and in normalalignment. Minimal thoracolumbar degenerative changes are present. No acuteosseous abnormality.[facility] O-ARM (Non-Reportable)2025-03-05 18:41:43These images do not require a Radiology diagnostic report.[facility] O-ARM (Non-Reportable) 2025-03-05 18:41:43These images do not require a Radiology diagnostic report. [facility] Time OR (Non-Reportable)2025-03-05 18:39:36 These images do not require a Radiology diagnostic report.[facility] Time OR (Non-Reportable)2025-03-05 18:39:36These images do not require a Radiology diagnostic report.[facility] [id number] 15:34:00Pawan Machado CRNA ? ? 03/05/2025 10:52 AMIntubationDate/Time: 03/05/2025 10:34 AMUrgency: electiveAirway not difficult General Information and Staff Patient location during procedure: ORPerformed: r esident/LEGAL SUPPORT ANALYST Performed by: Pawan Machado CRNAAuthorized by: Jose Luis Bingham MD ? Indications and Patient ConditionIndications for airway management: anesthesiaSedation level: deepPreoxygenated: yesPatient position: sniffingMILS not maintained throughoutMask difficulty assessment: 1 - vent by maskPlanned trial extubation Final Airway DetailsFinal airway type: endotracheal airway Successful airway: ETTCuffed: yes Successful intubation technique: direct laryngoscopyFacilitating devices/methods: intubating styletEndotracheal tube insertion site: oralBlade: MillerBlade size: #2ETT size (mm): 7.0Cormack-Lehane Classification: grade I - full view of glottisPlacement verified by: chest au scultation and capnometry Cuff volume (mL): 5Measured from: lipsETT to lips (cm): 22Number of attempts at approach: 1Ventilation between attempts: noneNumber of other approaches attempted: 0Un[facility] Thrmplas [id number] 14:01:53* Test Item Value Reference Range Interpretation Comme nts APTT Patient (test code = 3173-2) 36 Lab Interpretation (test cod e = 74132-9) Normal [facility] Time / [id number] 14:01:53* Test Item Value Reference Range Interpretation Comme nts PROTIME PATIENT (test code = 5964-2) 10.1 10.1-12.6 INR (test code = 6301-6) 0.9 <=4.5 Normal INR <1.1; Warfarin Therapeutic range 2.0 to 3.0 or 2.5 to 3.5, depending upon the indications. Lab Interpretation (test code = 98798-2) Normal [facility] [id number] 14:01:53* Test Item Value Reference Range Interpretation Comme nts APTT Patient (test code = 3173-2) 36 Lab Interpretation (test cod e = 84694-7) Normal [facility] Time / [id number] 14:01:53* Test Item Value Reference Range Interpretation Comme nts PROTIME PATIENT (test code = 5964-2) 10.1 10.1-12.6 INR (test code = 6301-6) 0.9 <=4.5 Normal INR <1.1; Warfarin Therapeutic range 2.0 to 3.0 or 2.5 to 3.5, depending upon the indications. Lab Interpretation (test code = 93162-8) Normal [facility] (NA, K, CL, CO2, GLUCOSE, BUN, CREATININE, CA)2025-03-05 13:58:35* Test Item Value Reference Range Interpretation Comme nts NA (test code = 2789876669) 138 mmol/L 135-145 K (test code = 0158290683) 3.7 mmol/L 3.5-5.0 CL (test code = 3544809961) 108 mmol/L 98-108 CO2 TOTAL (test code = 6162697803) 25 mmol/L 23-31 AGAP (test code = 9852432153) 5 2-16 BUN (test code = 1107526643) 13 mg/dL 7-23 GLUCOSE (test code = 1583070128) 95 mg/dL 70-110 CREATININE (test code = 2160-0) 0.73 mg/dL 0.50-1.04 CALCIUM (test code = 7017507973) 9 mg/dL 8.6-10.6 eGFR (test code = 22978-1) 94.9 mL/min/1.73m2 CKD-EPI eGFR (20 21). Assuming creatinine has been stable day-to-day for at least three months, the eGFR indicates Category G1 (>= 90 mL/min/1.73 m2) [facility] Metabolic Panel (NA, K, CL, CO2, GLUCOSE, BUN, CREATININE, CA)2025-03-05 13:58:35* Test Item Value Reference Range Interpretation Comme nts NA (test code = 3385472061) 138 mmol/L 135-145 K (test code = 8521764621) 3.7 mmol/L 3.5-5.0 CL (test code = 5847250293) 108 mmol/L 98-108 CO2 TOTAL (test code = 0472479296) 25 mmol/L 23-31 AGAP (test code = 9178247619) 5 2-16 BUN (test code = 2002390974) 13 mg/dL 7-23 GLUCOSE (test code = 5130845961) 95 mg/dL 70-110 CREATININE (test code = 2160-0) 0.73 mg/dL 0.50-1.04 CALCIUM (test code = 4304232275) 9 mg/dL 8.6-10.6 eGFR (test code = 37453-8) 94.9 mL/min/1.73m2 CKD-EPI eGFR (20 21). Assuming creatinine has been stable day-to-day for at least three months, the eGFR indicates Category G1 (>= 90 mL/min/1.73 m2) General acute hospital with [id number] 13:42:32* Test Item Value Reference Range Interpretation Comme nts WBC (test code = 6690-2) 8.75 4.30-11.10 RBC (test code = 789-8) 4.09 3.93-5.25 HGB (test code = 718-7) 12.8 g/dL 11.6-15.0 HCT (test code = 4544-3) 37.9 % 35.7-45.2 MCV (test code = 787-2) 92.7 fL 80.6-95.5 MCH (test code = 785-6) 31.3 pg 25.9-32.8 MCHC (test code = 786-4) 33.8 g/dL 31.6-35.1 RDW-SD (test code = 75777-9) 46.5 fL 39.0-49.9 RDW-CV (test code = 788-0) 13.5 % 12.0-15.5 PLT (test code = 777-3) 226 166-358 MPV (test code = 91133-6) 9.8 fL 9.5-12.9 NRBC/100 WBC (test code = 5358289943) 0 0.0-10.0 NRBC x10^3 (test code = 5738056208) See_Comment [Automated me ssage] The system which generated this result transmitted reference range: 10*3/?L. The reference range was not used to interpret this result as normal/abnormal. GRAN MAT (NEUT) % (test code = 770-8) 70.6 % IMM GRAN % (test code = 6327593427) 0.3 % LYMPH % (test code = 736-9) 17.7 % MONO % (test code = 5905-5) 7.9 % EOS % (test code = 713-8) 2.9 % BASO % (test code = 706-2) 0.6 % GRAN MAT x10^3(ANC) (test code = 4474601048) 6.18 10*3/uL 1.88-7.09 IMM GRAN x10^3 (test code = 4508343361) 0.03 10*3/uL 0.00-0.06 LYMPH x10^3 (test code = 731-0) 1.55 10*3/uL 1.32-3.29 MONO x10^3 (test code = 742-7) 0.69 10*3/uL 0.33-0.92 EOS x10^3 (test code = 711-2) 0.25 10*3/uL 0.03-0.39 BASO x10^3 (test code = 704-7) 0.05 10*3/uL 0.01-0.07 General acute hospital with [id number] 13:42:32* Test Item Value Reference Range Interpretation Comme nts WBC (test code = 6690-2) 8.75 4.30-11.10 RBC (test code = 789-8) 4.09 3.93-5.25 HGB (test code = 718-7) 12.8 g/dL 11.6-15.0 HCT (test code = 4544-3) 37.9 % 35.7-45.2 MCV (test code = 787-2) 92.7 fL 80.6-95.5 MCH (test code = 785-6) 31.3 pg 25.9-32.8 MCHC (test code = 786-4) 33.8 g/dL 31.6-35.1 RDW-SD (test code = 69106-7) 46.5 fL 39.0-49.9 RDW-CV (test code = 788-0) 13.5 % 12.0-15.5 PLT (test code = 777-3) 226 166-358 MPV (test code = 99454-1) 9.8 fL 9.5-12.9 NRBC/100 WBC (test code = 1269490686) 0 0.0-10.0 NRBC x10^3 (test code = 3392727649) See_Comment [Automated me ssage] The system which generated this result transmitted reference range: 10*3/?L. The reference range was not used to interpret this result as normal/abnormal. GRAN MAT (NEUT) % (test code = 770-8) 70.6 % IMM GRAN % (test code = 4877578972) 0.3 % LYMPH % (test code = 736-9) 17.7 % MONO % (test code = 5905-5) 7.9 % EOS % (test code = 713-8) 2.9 % BASO % (test code = 706-2) 0.6 % GRAN MAT x10^3(ANC) (test code = 9626457888) 6.18 10*3/uL 1.88-7.09 IMM GRAN x10^3 (test code = 9119066465) 0.03 10*3/uL 0.00-0.06 LYMPH x10^3 (test code = 731-0) 1.55 10*3/uL 1.32-3.29 MONO x10^3 (test code = 742-7) 0.69 10*3/uL 0.33-0.92 EOS x10^3 (test code = 711-2) 0.25 10*3/uL 0.03-0.39 BASO x10^3 (test code = 704-7) 0.05 10*3/uL 0.01-0.07 [facility] - [facility] [id number] 13:28:00* Test Item Value Reference Range Interpretation Comme nts ABO & RH (test code = 20) O POSITIVE IAT (test code = 1185) Negative [facility]Type [facility] Screen - ONCE [id number] 13:28:00* Test Item Value Reference Range Interpretation Comme nts ABO & RH (test code = 20) O POSITIVE IAT (test code = 1185) Negative [facility]MR Thoracic spine wo [id number] 17:41:44MR THORACIC SPINE WO CONTRAST HISTORY: Female 60 years Mid-back pain Myelopathy, acute, thoracic spine COMPARISON: None TECHNIQUE: Multiplanar multi weighted imaging of the thoracic spine wasobtainedwithout IV contrast FINDINGS: The vertebral bodies are normal in height and in normal alignment. Thecervical cord is flattened at the level of T11-T12 and there is mildassociated hyperintense T2/STIRcord signal at this level. The cord isotherwise normal in caliber and signal intensity. The background marrow signal is unremarkable. Subtle hyperintense STIRsignal is noted within the T11 and T12 pedicles and extending into the A91dqaxbdf process. The intervertebral disc heights are preserved. At T11-T12: A posterior disc bulge, ligamentum flavum thickening and facetarthropathy contribute to moderate canal stenosis and cord flattening aswell as [id number]-tv-[id number] bilateral neural foraminal narrowing. No significant degenerative changes are present at any additional thoraciclevel. No additional significant canal stenosis or neural foraminalnarrowing are present at any level.[facility] Lum[facility] wo [id number] 20:51:09CT LUMBAR SPINE WO CONTRAST HISTORY: 59 years old, Female with Low back pain, cauda equina syndromesuspected COMPARISON: None. TECHNIQUE: Axial images of the lumbar spine were obtained withoutadministration of IV contrast. Coronal and sagittal images werereformatted. FINDINGS: The lumbar curvature is normal. The vertebral bodies are normal in heightand in normal alignment. No facet fracture or subluxation is present. Mild spondylotic changes in the form of disc space narrowing and marginalosteophytes most pronounced at L1-L2. Shallow disc herniations at L3-L6zzhxcfv L5-S1 most pronounced at the lumbosacral junction where vacuumphenomenon is also seen. A 1.7 cm left adrenal nodule demonstrating intralesional density compatiblewith adenoma. The paraspinal soft tissue are unremarkable.[facility] - Affirm VPIII (BV Panel)2018-10-10 00:00:00* Test Item Value Reference Range Interpretation Comme nts Affirm VPIII (BV Panel) REPO RT (test code = Affirm VPIII (BV Panel) REPORT) See Comment [facility][QL] [id number] 16:15:01* Test Item Value Reference Range Interpretation Comme nts RPR (test code = 35506-4) Non-Reactive Non-Reactive [facility][QH] HEPATITIS B SURFACE ANTIGEN W/REFL [id number] 16:15:01 * Test Item Value Reference Range Interpretation Comme nts Hepatitis B Surface Antigen (test code = 5195-3) Negative Negative [facility][QLH] HEPATITIS C [id number] 16:15:01* Test Item Value Reference Range Interpretation Comme nts Hepatitis C Antibody (test c ode = 25684-9) Negative [facility][QH] HIV AB, HIV 1/2, EIA, WITH [id number] 16:15:01* Test Item Value Reference Range Interpretation Comme nts HIV Ag/Ab 4th Gen (test code = 69359-5) Negative Negative HIV test results should be considered positive only when both the screening andthe confirmatory tests are positive. A negative confirmatory test in patientswith a positive screening test does not exclude HIV infection. If clincallywarranted, an HIV RNA quantitative test should be ordered. [facility] Consult Notes Date/Time Note Provider Source 2025-03-08 13:32:00 Associated Order(s): CONSULT ADULT PHYSICAL THERAPY Physical Therapy Duplicate Consult. Eddie Diaz PT, DPT Rehabilitation Services Eddie Diaz PT [facility] 2025-03-06 10:38:42 Associated Order(s): CONSULT QUALITY CONTROL ANALYST-ADULT Images from the original note were not included. CARE MANAGEMENT Care Coordinators/Social Workers/CM Specialists/Utilization Review/Patient Placement & Transfer Center 03/06/2025 10:38 AM Reason for consult:Please give recommendation or opinion on: family primary decision maker and appropriate options for discharge destination. Primary decision maker:Lashay ingram [phone] Patient is currently covered by traditional Medicare and requires no insurance authorization for post acute placements or therapies. Lindsay Ling RN Care Management [facility] [phone] [email or web address] 2025-03-06 09:12:00 Associated Order(s): CONSULT ADULT OCCUPATIONAL THERAPY OT GENERAL EVALUATION Consult received via [employer], EMR reviewed and evaluation completed 03/06/25. Patient referred to occupational therapy for evaluation and treatment secondary to lumbar radiculopathy and s/p T11-T12 laminectomies, facetectomies, fusion, arthrodesis . Patient agreeable to participate in occupational therapy. Patient found ambulating in restroom with PT, No visitors present. Pt is a high fall risk without home support and may benefit from placement at facility where rehab services are available. Discharge Recommendations: Therapy Needs and Potential:- Patient would benefit from continued skilled occupational therapy services to address: Decline in basic activities of daily living, Decline in instrumental activities of daily living, Decreased strength, Decreased range of motion, and Decreased endurance - Patient demonstrates good potential to improve and meet therapy goals with further skilled occupational therapy services. - Patient appears motivated to improve their BADLS and IADLs and return to their previous level of function. - Patient exhibits limited activity tolerance. - Patient able to follow commands: 1-step Yes, Multi-step Yes, Inconsistencies No Challenges to Home Transition:- Requires physical assistance for BADLS - Requires physical assistance for IADLS - No caregiver support - Increased risk of falls - Environmental barriers Equipment Recommendations:Shower chair, Long handled sponge, Long handled cow tender, and Sock aide PLAN OF CARE: At least 2x/week Precautions: Weight bearing status: Activity as tolerated General: Fall and spinal Bracing: N/A Subjective: "How are these exercises going to help my back?" "If you aren't going to give me the equipment, I am not going to use it. I can't buy anything right now." Pt is guarded with limited receptiveness to Ot's recommendations. Current Occupational Performance and/or Treatment: AM-PAC 6 Clicks (Raw Score 0=Dependent, 24=Independent; Low function Raw Score 0= Dependent, 32=Independent): Raw Score - Daily Activity: 20 T-Scale Score - Daily Activity: 42.03 Feeding: Independent, pt drinks water seated in recliner Grooming: Independent, Pt brushes hair seated in recliner; pt provided with all supplies for oral hygiene and appears able to complete task independently. UB Dressing: Minimal Assistance, simulated seated in recliner chair: TOBIAS shoulder flexion limited secondary to pain. LB Dressing: Minimal Assistance Pt dons/doffs TOBIAS socks seated in chair, guided into figure-4 position Pt with increased effort and pain with LLE ROM Pt encouraged to don clothing with LLE first and doff clothing with LLE last Pt educated on use of cow tender however pt not receptive, stating, "I know how to use a cow tender." Pt not receptive to learning how to use sock aid. " I don't need a sock aid." Toilet Transfer: Minimal Assistance, pt transfers to and from toilet using grab bar and RW for support, assist provided from PT. Functional Mobility: Functional mobility in room with RW, decreased coordination and stability VCs provided for safety/sequencing Stand to sit: Min Assist Pt guided to reach back and utilize BUE for support and controlled descent to chair. Patient/caregiver educated on: Adaptive equipment (handout provided) , ADL training, AROM (instructed to perform HEP 3-5x/day x 10 reps; TOBIAS shoulder flexion/extension, abduction/adduction retraction/protraction) handout issued) , Compensatory techniques/adaptive strategies, Role of OT, Safety awareness, and Spinal precautions Patient left reclining in bedside chair with call anna in reach. No visitors present. Please, see full evaluation below for more detail. OT EVALUATION: 60 year old female Admit date: 03/05/2025 Date of onset: 02/11 Admit Diagnosis: Lumbar radiculopathy [M54.16] Weakness of left leg [R29.898] OT Diagnosis: Impaired BADL independence, Impaired IADL independence, Weakness, Activity intolerance, Decreased endurance, Impaired self-care mobility, Decreased UE Function TOBIAS, and Limited joint ROM PMH: No past medical history on file. PSH: No past surgical history on file. PAIN: Pain Location: lower back and upper back Pain rating before treatment: does not rate, After treatment: does not rate Pain Management: Nursing Notified, Decreased movement aides in some pain reduction, Use of assistive device aides in pain reduction during mobility, and Repositioning Provided OCCUPATIONAL ROLES/HOME ENVIRONMENT: Home environment: Lives alone, 05/02 supervision/assistance is not available, Elevated home, and Elevator. 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 Since January pt has needed a RW for mobility and WC for long distance. Suspected ischemic or hemorraghic stroke patient: No Equipment prior to admission: Grab bars inside shower, Hand held shower, Rolling Walker PERFORMANCE SKILLS/FACTORS: UE Muscle Tone: bilateral WNL UE ROM: bilateral AROM WFL though limited by pain last 25% shoulder flexion, internal/external rotation UE Strength: Not assessed secondary to spinal precautions and pain Hand dominance: left Dexterity/Coordination: bilateral Intact Endurance - Sitting: Good Standing: Fair - Sitting Balance - Static: Good Dynamic: Fair+ Standing: Balance - Static Fair Dynamic: Fair - Dizziness: No Skin Integrity: surgical incision Sensation: Patient denies numbness and tingling. Oral Motor: WFL Communication: Able to verbalize needs Yes Other: N/A Vision: WFL Yes Other: N/A Hearing: good; no issues reported COGNITION: Orientation: person, place, date/time, and situation Follows Commands: 1-step Yes Multi-step Yes Inconsistencies No Safety Awareness/Judgment: Fair PROBLEM LIST: Decreased independence with ADL, Impaired postural control, Decreased functional ROM, and Decreased strength/endurance for functional activity REHAB POTENTIAL/PROGNOSIS: good PATIENT/FAMILY GOALS: Patient would like to be able to take care of self TREATMENT/INTERVENTION PLAN: Functional motor treatment, Patient/Caregiver Education, Equipment recommendations, Daily living activities, Therapeutic exercises, and Neuromuscular Re-Education GOAL(S): By discharge, patient will increase independence in daily living skills as follows: 1 Patient will perform toilet transfer with independence. 2 Patient will perform shower transfer with independence. 3 Patient will perform simulates LB bathing task with independence using AE as needed 4 Patient will don/doff underwear, pants , and shorts with independence using AE as needed. 5 Patient will don/doff socks with independence using AE as needed. 6 Patient will complete 3 grooming tasks with independence while standing at the sink without LOB or adverse event 7 Patient will complete toileting hygiene, including clothing management, with independence. 8 Patient/caregiver will verbalize/demonstrate understanding/proficiency in the following home programs: Adaptive equipment , 9 Compensatory techniques/adaptive strategies, and 10 Spinal Precautions PATIENT-FAMILY TEACHING Patient provided with preferred teaching of verbal information, written information, and demonstration on Adaptive equipment (handout provided) , ADL training, AROM (instructed to perform HEP 3-5x/day x 10 reps; TOBIAS shoulder flexion/extension, abduction/adduction retraction/protraction) handout issued) , Compensatory techniques/adaptive strategies, Role of OT, Safety awareness, and Spinal precautions. Barriers to learning include desire and motivation. Verbal instruction, Written material, and Demonstration teaching provided. Individual is able to read and not receptive to teaching. HOLLI Cody, MOT Total Timed Treatment Codes: 12 Min Total Treatment Time: 22 Min Patient Complexity Level High - An occupational therapy evaluation of high complexity was completed using the above tests and measures. The following information was obtained: An occupational profile and medical and therapy history, including review of medical and/or therapy records and extensive additional review of physical, cognitive, or psychosocial history related to current functional performance, Various standardized and non-standardized assessments were used to identify at least 5 or more performance deficits related to physical, cognitive, or psychosocial skills that result in activity limitations and/or participation restrictions, and Clinical decision-making is of high analytic complexity, which includes an analysis of the patient profile, analysis of data from comprehensive assessment(s), and consideration of multiple treatment options. Patient present with comorbidities that affect occupational performance. Significant modification of tasks or assistance (e.g., physical or verbal) with assessment(s) is necessary to enable patient to complete evaluation component. Susana Morgan OT [facility] 2025-03-06 08:45:00 Associated Order(s): CONSULT ADULT PHYSICAL THERAPY Patient agreeable to working with physical therapy. Patient supine in bed and Heels offloaded? No: not required as patient is alert and oriented, as well as exhibits sufficient LE strength and ability to move/reposition LEs/heels throughout the day, SCDs on but not engaged. Recommend nursing staff utilize RW to safely assist patient with mobility out of the bed or chair. PHYSICAL THERAPY EVALUATION Consult received, chart reviewed and evaluation complete this date. Patient is referred to PT for evaluation and treatment. Patient is a 60 year old female who presents to hospital for Lumbar radiculopathy [M54.16] Weakness of left leg [R29.898] . S/P FUSION SPINE POSTERIOR THORACIC LUMBAR 03/05/25 Lower back pain Discharge Recommendations: Therapy Needs and Potential: Patient would benefit from continued physical therapy services to address: decline in bed mobility decline in transfers decline in gait and/or balance decreased strength decreased endurance Patient demonstrates fair potential to improve and meet therapy goals with further physical therapy services. Patient appears motivated to improve their functional mobility and return to their previous level of function. Patient may benefit from Post Acute Physical Therapy. Challenges to Home Transition: increased risk of falls decreased caregiver availability decreased safety awareness environmental barriers Equipment recommendations: Patient has or access to necessary equipment, rolling walker, and small base quad cane Current Functional Status and/or Treatment: AM-PAC 6 Clicks (Raw Score 0=Dependent, 24=Independent; Low function Raw Score 0= Dependent, 32=Independent): Raw Score - Basic Mobility : 19 T-Scale Score - Basic Mobility : 42.48 Bed Mobility: Supine to sit: Minimal Assistance Rolling: Independent Scooting to edge of bed: Minimal Assistance Sitting balance Fair+ Analyzed bed function, reinforce log roll tech , patient was able to maintain neutral spine position but endorses it hurts , moan in pain Dizziness Yes Transfers: Sit to stand: Minimal Assistance using RW Stand to sit: Minimal Assistance using RW Stand pivot transfer: Minimal Assistance Static/dynamic standing balance: Fair Verbal cueing provided for correct hand placement and correct use of AD Cued on proper hand/ foot placement Dizziness No Ambulation: Assisted patient with ambulation as follows: 50 feet using RW and Minimal Assistance. Patient presenting with Step-to gait pattern. Instructed patient in directional changes and head movements in all planes during gait trial resulting in periods of instability and no LOB. C/O pain on mid/lower back PS 8/10 Dizziness No Therapeutic exercise: patient educated in Adaptive equipment , Compensatory techniques/adaptive strategies, Energy conservation, Fall prevention, General strengthening, Positioning, Relaxation/breathing techniques, and Safety awareness., instructed patient in the following: ankle pumps, hip abduction/adduction, short arc quads, and patient/caregiver instructed to perform HEP 1-2 times per day, 10 repetitions. Reinforce Spine precautions , No bending , excessive twisting, excessive turning , avoid heavy lifting Functional Outcome Measures: (Values within the past 12 hours) Tinetti Gait Score- # / 12 Initiation of gait: Hesitancy or multiple attempts to start Step length: Only on foot passes the other Foot clearance: Only one foot clears the floor during swing phase Step Symmetry: Step lengths not equal Step continuity: Stopping/dis-continuous steps Path: Mild/moderate deviation or uses AD Trunk: No sway, but flex of knees/ back or spreads arms Walking: Heels apart Tinetti Gait Score: 4 Tinetti Gait Score Interpretation: < 7 - Increased risk for falls TINETTI BALANCE SCORE- # / 16 Sitting balance: Steady, safe Arises: Able, uses arms to help Attempts to Rise: Able, requires > 1 Immediate standing balance (first 5 sec): Steady but uses walker or other support Standing Balance: Steady but MALATHI > 4 inches or uses AD/other support Nudged 3 times *: Staggers, grabs, catches self Eyes closed*: Unsteady Turning 360 degrees: Either discontinuous or unsteady Sitting down: Uses arms or motion not smooth Tinetti Balance Score: 8 Tinetti Balance Interpretation: < 9 - Increased risk for falls After session, patient sitting upright in bedside chair and Heels offloaded? No: not required as patient is alert and oriented, as well as exhibits sufficient LE strength and ability to move/reposition LEs/heels throughout the day, left with other discipline- OT. Call button provided. PLAN OF CARE: While in the hospital, PT will follow patient at least 2 times per week,once or twice a day, per patient's tolerance and needs. See below for complete details. Admit Date: 03/05/2025 Hospital Diagnosis:Lumbar radiculopathy [M54.16] Weakness of left leg [R29.898] PT Diagnosis: Difficulty walking, Weakness, Malaise/fatigue, Pain, and Abnormality of gait and balance Weight Bearing Precaution: WBAT, Right, Left, LE ; Spine precautions General Precautions: PPE used:Gloves, General, Fall, Logroll, ,Purewick catheter, IV x1 Bracing/Cast present or required:N/A PMH: No past medical history on file. PSH: No past surgical history on file. PRIOR LIVING SITUATION: lives alone and in a high raise house, has elevator DME: Quad Cane, Rolling Walker Prior level of Mobility: community ambulation, house hold ambulation, ambulates with quad Cane Suspected ischemic or hemorraghic stroke:No Subjective: C/O Pain on Mid/lower back Patient/Family Goals: "I want to go home". Patient/Family verbalizes understanding of condition: Yes PAIN: -Pain Description: aching and constant -Pain Location: lower back and Mid Back -Pain rating before treatment: 8, After treatment: 10 -Pain Management: Nursing Notified, Decreased movement aides in some pain reduction, Use of assistive device aides in pain reduction during mobility, and Repositioning Provided COMMUNICATION Primary Language: Grenadian Able to Verbalize needs: Yes Vision:glasses Hearing:good; no issues reported ORIENTATION/COGNITION: Oriented to: person, place, date/time, and situation Awake: Yes Alert: Yes Dizzy: Yes Follows Commands: Yes 1-Step Yes Multi-Step No Inconsistent: No NEUROLOGICAL Light Touch: within functional limits bilateral LE Heel to banerjee: WFL Tone: WFL BALANCE: Sitting: Static: Fair+ Dynamic: Fair Standing: Static: Fair Dynamic: Poor RANGE OF MOTION: within functional limits bilateral LE STRENGTH: 3+/5 (F+)Left LE, Right LE 4-/5 ENDURANCE: Fair, Room air SKIN INTEGRITY: not intact, please see nurses notes for details. PROBLEM LIST: Decline in bed mobility, Decline in gait, Decline in transfers, Decreased strength, Decreased endurance, Decreased balance, Weight bearing restrictions, Safety awareness deficits, and Pain ASSESSMENT: Patient is a 60 year old female seen secondary to the above listed diagnosis. Patient would benefit from continued PT to address the above listed deficits to maximize independence and safety with functional mobility. Rehabilitation Potential: fair Goals: The following goals are to maximize independence and safety with functional mobility to eventually return to prior living situation and prior functional status. Upon discharge, patient and/or family will demonstrate the followin. Supine to sit: Independent Sit to supine: Independent Scooting to edge of bed: Independent Sitting balance Excellent 2. Sit to stand: Independent using RW Stand to sit: Independent using RW Stand pivot transfer: Independent 3. Independent with ambulation, Feet: 300 using least assistive device. Treatment Plan: Gait training, Therapeutic exercise, Transfer training, Balance training, Bed mobility training, Equipment needs assessment, Safety education, patient/caregiver education, Pain management, and Neuromuscular Re-Education PATIENT EDUCATION: Patient provided with preferred teaching of verbal information and demonstration on role of PT, plan of care, DC planning. Barriers to learning include physical limitations, desire and motivation, and emotional. Verbal instruction and Demonstration teaching provided. Individual is able to read and needs reinforcement of teaching and not receptive to teaching. Total Time Tx Codes in Minutes: 23 min Total Treatment Time in Minutes: 33 min Landen Vega PT, DPT [facility] Physical Therapy Rehabilitation Services A physical therapy evaluation of high complexity was completed based on meeting at the criteria below: A history of present problem with at least 3 or more personal factors (includes environmental factors) and/or comorbidities that impact the plan of care An examination of body systems using standardized tests and measures addressing a total of at least 4 or more elements from any of the following: body structures and functions, activity limitations, and/or participation limitations A clinical presentation with unstable and unpredictable characteristics Landen Vega PT [facility] - Health History and Physical Notes Date/Time Note Provider Source 2025-03-05 08:52:08 Images from the original note were not included. Neurosurgery Pre Operative History and Physical Note Date of Service: 03/05/25 Karina Gloria is a 60 year old female who was interviewed and examined today in the DSU/holding area/operating room before induction of anesthesia. There have been no significant interval changes in the history or physical exam. See full H&P, copied below for completeness, for more details. Risks, benefits and alternatives to the procedure were reviewed with the patient again today, and pt voiced understanding of the condition present as well as the planned procedure(s) without questions and wishes to proceed. Informed consent was obtained. Diagnosis: lumbar radiculopathy Planned procedure: T11/12 laminectomy with possible arthrodesis Shahram Abernathy MD Neurosurgery For inquiries please page [phone] Neurosurgery Clinic Note 02/20/2025 Chief Complaint: Low back pain, weakness follow up Consent was given for KIP Copilot Recording History of Present Illness 02/11/2025 Karina Gloria is a 59 year old female w/PMH fibromyalgia, presenting to neurosurgery clinic with worsening low back pain after lifting cases of beer and ice ~5 weeks ago. 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 The following day, she was unable to rise from bed. Seen in the ED 01/29/[address] showed mild multilevel degenerative changes w/o fracture or malalignment. She was treated with ketorolac, dexamethasone, hydrocodone & cyclobenzaprine providing temporary relief and discharged home. Currently with severe LBP radiating down LLE to knee w/paresthesia. Worsening gait disturbance, weakness and buckling of L knee resulting in frequent falls, most recent last night. Necessitating the use of walker and w/c for distances. No b/b incontinence or saddle anesthesia. MR was completed last week but imaging or report not available for review. Has not undergone physical therapy or received pain management injections. Interval 02/20/25 Presents to review imaging. Since JADA reports multiple falls, constant pain, weakness and worsening paresthesia in the LLE. Cold sensations in the left foot. Using a cane for balance. Urinary urgency, but denies incontinence or saddle anesthesia. Activities are significantly impaired by weakness and ataxia. A physical therapy appointment is scheduled for Sunday. Wishes to discuss surgical options. Not taking blood thinners or history of WI or stroke. Review of Systems Constitutional: negative Genitourinary: negative Musculoskeletal: + lower back pain, - joint stiffness, - muscle spasms Neuro: +Difficulty Walking, -Headaches, -Numbness, +Paraesthesias, -Seizures, -Strokes, +Weakness Physical Exam: Vitals BP 129/68 (BP Location: Left arm, Patient Position: Sitting, BP cuff size: Adult Medium) | Pulse 75 | Temp 36.1 ?C (97 ?F) (Temporal Artery) | Resp 18 | Ht 5' 4" (1.626 m) | Wt 136 lb (61.7 kg) | SpO2 100% | BMI 23.34 kg/m? Appearance: patient alert, oriented x4, and in no acute distress Musculoskeletal: Lumbar Spine: - Lumbar spinous process/Lumbar paraspinal palpable pain, full range of motion and no straight leg raising pain, no SI tenderness Neuro: UPPER EXTREMITY STRENGTH EXAM: R 5/5 5/5 5/5 5/5 5/5 D(C5) B(C6) T(C7) Lab Analyst(C8) I (T1) L 5/5 5/5 5/5 5/5 5/5 LOWER EXTREMITY STRENGTH EXAM: R 5/5 5/5 5/5 5/5 5/5 IP(L23) Q(L4) TA(L5) EHL(L5) G(S1) L 1/5 1/5 1/5 1/5 1/5 Sensory: Decreased sensation in the right leg to light touch, vibration, and proprioception. Wheel chair Imagin01/29/25 CT Lumbar spine The lumbar curvature is normal. The vertebral bodies are normal in height and in normal alignment. No facet fracture or subluxation is present. Mild spondylotic changes in the form of disc space narrowing and marginal osteophytes most pronounced at L1-L2. Shallow disc herniations at L3-L4 through L5-S1 most pronounced at the lumbosacral junction where vacuum phenomenon is also seen. A 1.7 cm left adrenal nodule demonstrating intralesional density compatible with adenoma. The paraspinal soft tissue are unremarkable. IMPRESSION No acute fracture or traumatic malalignment in the lumbar spine. Mild multilevel degenerative changes EMG/NCV: No new electrodiagnostics. Assessment & Plan Karina Gloria is a 59 year old female w/PMH fibromyalgia, with worsening LBP w/LLE radic, paresthesias and weakness. MR shows mod to severe spinal canal stenosis at T11/12. Worsening LLE weakness on exam. Offered T11/12 lami w/possible fusion for facet cyst. Discussion regarding risks, potential complications and outcome were outlined by . All of the patient's questions were answered and the patient has agreed to proceed with surgery on 03/05/24. - Type & screen - MR thoracic stat ELISSA Thompson-C Neurosurgery Faculty This encounter was performed in conjunction with YUE: Tori Sun. I saw and evaluated the patient and performed the substantive portion of this visit based upon . MDM: Medical Decision Making for which I performed in its entirety. 1. Lumbar radiculopathy (Primary) - MR Thoracic spine wo contrast; Future - Intraoperative Monitoring; Standing - CASE REQUEST: FUSION SPINE POSTERIOR THORACIC LUMBAR; Standing - Type and Screen - - FL Time OR (Non-Reportable); Standing - FL O-ARM (Non-Reportable); Standing - Intraoperative Monitoring - CASE REQUEST: FUSION SPINE POSTERIOR THORACIC LUMBAR 2. Weakness of left leg MRI T spine obtained immediately following clinic visit which indicates presence of severe canal stenosis at T11/12 due to ligamentous hypertrophy and likely facet cyst formation. Plan for T11/12 laminectomy with possible arthrodesis if needed. Patient has had significant worsening of symptoms over a short period of time and would expect this to continue to progress without operative treatment. She understands the indication and risks of operative treatment and wishes to proceed. All risks benefits and alternatives discussed in detail including bleeding, infection, numbness, weakness or nerve injury, failure of spinal fusion, need for additional surgery, hardware failure, CSF leakage and other. Patient verbalized understanding and wishes to proceed I discussed with the patient the red flags of thoracic stenosis including weakness, numbness, saddle anesthesia, and/or bowel or bladder incontinence. The patient come to the emergency department immediately if incontinence or saddle anesthesia occur. - MR Thoracic spine wo contrast; Future - Intraoperative Monitoring; Standing - CASE REQUEST: FUSION SPINE POSTERIOR THORACIC LUMBAR; Standing - Type and Screen - - FL Time OR (Non-Reportable); Standing - FL O-ARM (Non-Reportable); Standing - Intraoperative Monitoring - CASE REQUEST: FUSION SPINE POSTERIOR THORACIC LUMBAR I have reviewed and verified the documentation for this encounter and assume responsibility for the services by signing the medical record. Cosigned by Jason Jessica MD at 03/05/2025 9:09 AM CDT Associated attestation - Jason Jessica MD - 03/05/2025 9:09 AM CDT Faculty Addendum: I personally evaluated and examined the patient and agree with the note by Dr. Abernathy with the following: All risks benefits and alternatives discussed in detail including bleeding, infection, numbness, weakness or nerve injury, failure of spinal fusion, need for additional surgery, hardware failure, CSF leakage and other. Patient verbalized understanding and wishes to proceed Patient has disc bulge and ligamentous hypertrophy causing severe spinal stenosis and evidence of cord signal change. I think that fusion is likely the best option to ensure that the disc does not herniate or progressively retropulse causing severe ventral compression which would be much more difficult to treat. Likely will fuse in addition to decompression. Patient understands and agrees with the plan. Jason Jessica MD [facility] Neurosurgery NEUROLOGICAL SURGERY [facility] Procedure Notes Date/Time Note Provider Source 2025-03-05 10:51:55 Associated Order(s): Intubation Intubation Date/Time: 03/05/2025 10:34 AM Urgency: elective Airway not difficult General Information and Staff Patient location during procedure: OR Performed: resident/LEGAL SUPPORT ANALYST Performed by: Pawan Machado, LEGAL SUPPORT ANALYST Authorized by: Jose Luis Bingham MD Indications and Patient Condition Indications for airway management: anesthesia Sedation level: deep Preoxygenated: yes Patient position: sniffing MILS not maintained throughout Mask difficulty assessment: 1 - vent by mask Planned trial extubation Final Airway Details Final airway type: endotracheal airway Successful airway: ETT Cuffed: yes Successful intubation technique: direct laryngoscopy Facilitating devices/methods: intubating stylet Endotracheal tube insertion site: oral Blade: Avila Blade size: #2 ETT size (mm): 7.0 Cormack-Lehane Classification: grade I - full view of glottis Placement verified by: chest auscultation and capnometry Cuff volume (mL): 5 Measured from: lips ETT to lips (cm): 22 Number of attempts at approach: 1 Ventilation between attempts: none Number of other approaches attempted: 0 NACR-NURSE ELECTRICIAN SECOND,CERTIFIED REGISTERED NURSE ELECTRICIAN SECOND [facility] Notes Date/Time Note Provider Source 2025-04-14 08:18:15 Called and notified pt of the rx being called in to her pharmacy. Also explained that she needs to follow up and or make an appt with pain mgt as we can not continue to refill her rx. Pt understood and will call back if any questions or concerns/change of condition. ARITAT Macy Art RN [facility] 2025-04-14 08:06:40 Rx sent to help bridge until patient can find pain clinic provider. She needs to work this week to find someone and schedule an appointment. [facility] 2025-04-13 10:29:49 Called and spoke to pt. Pt expresses that her pain level continues to be 9/10 and is currently doing PT and trying to get back to normal ADL's. Denies injuries. Advised pt to please consider finding a pain mgt dr to address her pain mgt regimen as our providers are not pain mgt specialty and will not be able to be refilling her pain medication. Pt stated that she has tried to look for one close to her home and has not yet found one. Offered to place referral to one and she said that it's too far. Advised that I will forward msg to Dr. Jessica and notify him of her concern and attempts to find a pain mgt dr. ARITAT Macy Art RN [facility] 2025-04-13 09:38:52 Copied from [facility] #[id number]. Topic: Clinical - Order >> Apr 13, 2025 9:36 AM Patient Cardiac Care Nurse wrote: Pt calling states needs to speak w/ provider regarding pain medication Pt states she is out and in pain [phone] Thank you! Alexsandra Woodruff [facility] 2025-04-01 16:54:32 Addendum created 04/01/251653 by Pawan Machado CRNA Intraprocedure Meds edited T [facility] 2025-03-26 17:20:18 Addended by: TORI LITTLE on: 03/26/2025 05:20 PM Modules accepted: Orders T [facility] 2025-03-26 16:48:40 Faxed and scanned physical therapy POC (03/17/25) from [facility]. Fax confirmation received Macy Art RN [facility] 2025-03-26 16:16:39 Spoke to pt and per patient, she has been experiencing incision pain. Pt denies drainage from incision, fever, chills. Per pt she started physical therapy and her pain has increased. Pt asked for a refill on her [place] 10-325. At this time, a new rx of Tylenol #3 will be sent to the pharmacy of her choice in [place]. Pt notified of new rx being called. (Approved by Tori Sun WAXING MACHINE OPERATOR) Advised pt that if symptoms worsen, please contact our office or go the nearest emergency room. Pt understood. Also pt stated that she will contact us with a pain mgt name and phone number so we can send the referral out, as for now, referral is on hold. Macy Art RN [facility] 2025-03-26 15:40:17 Copied from [facility] #[id number]. Topic: Clinical - Medical Advice >> Mar 26, 2025 3:38 PM Patient Cardiac Care Nurse wrote: Karina Colin [facility] Clinic Name: [facility] [id number] female / 60 year old (1965) Pt states she would like a message specifically to Tori Berman [facility] regarding the pain that she is in [phone] Alexsandra Woodruff [facility] 2025-03-16 20:19:16 Addendum created 03/16/25 2019 by Pawan Machado CRNA Intraprocedure Meds edited [facility] 2025-03-10 16:19:55 Faxed both PT & Pain orders to requested providers. Confirmation Received Rosita Whelan MA [facility] 2025-03-10 15:50:34 Patient reports significant pain, worse than pre-op pain. Taking [place] 10 without relief. Did not worm picker the robaxin or valium (was unavailable at the pharmacy). Will re-send beti Castaneda in [place] [phone]. Patient requesting different time for her post-op appointment with Tori for staple removal - changed to 11:30am per patient request. Patient requesting updated referral orders for PT and Pain management post op. Will send. PT - [facility] (F) [phone] Favio Cui (Pain Management) - (F) [phone] [facility] 2025-03-10 14:18:33 Copied from [facility] #[id number]. Topic: Clinical - Medical Advice >> Mar 10, 2025 2:16 PM Patient Cardiac Care Nurse wrote: Karina Gloria [id number] Pt not going into detail, states she has questions for Tori Sun post op related [phone] Alexsandra Woodruff [facility] 2025-03-08 15:00:00 Problem: Falls, Risk of Goal: Absence of falls Outcome: Adequate for discharge Problem: Skin integrity Impaired (Risk or Actual) Goal: Wound healing Outcome: Adequate for discharge Goal: Prevention of new skin breakdown Outcome: Adequate for discharge Problem: Pain Goal: Control of pain at or below patient's documented comfort goal Outcome: Adequate for discharge Goal: Reduction in pain sensation Outcome: Adequate for discharge Problem: Infection Risk Goal: Absence of infection Outcome: Adequate for discharge Problem: Mobility - Impaired Goal: Able to achieve maximum mobility level Outcome: Adequate for discharge Problem: Discharge Planning Goal: Adequate for discharge Outcome: Adequate for discharge Goal: Effective communication Outcome: Adequate for discharge Problem: Venous Thromboembolism, (actual or risk of) Goal: Absence of venous thromboembolism (Risk) Outcome: Adequate for discharge Problem: Activity Intolerance Goal: Improved activity tolerance Outcome: Adequate for discharge Fatou Blake RN [facility] 2025-03-08 00:25:37 Problem: Falls, Risk of Goal: Absence of falls Outcome: Progressing as expected Problem: Skin integrity Impaired (Risk or Actual) Goal: Wound healing Outcome: Progressing as expected Goal: Prevention of new skin breakdown Outcome: Progressing as expected Problem: Pain Goal: Control of pain at or below patient's documented comfort goal Outcome: Progressing as expected Goal: Reduction in pain sensation Outcome: Progressing as expected Problem: Infection Risk Goal: Absence of infection Outcome: Progressing as expected Problem: Mobility - Impaired Goal: Able to achieve maximum mobility level Outcome: Progressing as expected Problem: Discharge Planning Goal: Adequate for discharge Outcome: Progressing as expected Goal: Effective communication Outcome: Progressing as expected Problem: Venous Thromboembolism, (actual or risk of) Goal: Absence of venous thromboembolism (Risk) Outcome: Progressing as expected Problem: Activity Intolerance Goal: Improved activity tolerance Outcome: Progressing as expected Familia Baumann RN [facility] 2025-03-07 23:44:12 Addendum created 03/07/252343 by Pawan Machado CRNA Intraprocedure Meds edited [facility] 2025-03-07 19:56:23 Problem: Falls, Risk of Goal: Absence of falls 03/07/20251955 by Ann Gonzalez RN Outcome: Progressing as expected 03/07/20251954 by Ann Gonzalez RN Outcome: Progressing as expected Problem: Skin integrity Impaired (Risk or Actual) Goal: Wound healing 03/07/20251955 by Ann Gonzalez RN Outcome: Progressing as expected 03/07/20251954 by Ann Gonzalez RN Outcome: Progressing as expected Goal: Prevention of new skin breakdown 03/07/20251955 by Ann Gonzalez RN Outcome: Progressing as expected 03/07/20251954 by Ann Gonzalez RN Outcome: Progressing as expected Problem: Pain Goal: Control of pain at or below patient's documented comfort goal 03/07/20251955 by Ann Gonzalez RN Outcome: Progressing as expected 03/07/20251954 by Ann Gonzalez RN Outcome: Progressing as expected Goal: Reduction in pain sensation 03/07/20251955 by Ann Gonzalez RN Outcome: Progressing as expected 03/07/20251954 by Ann Gonzalez RN Outcome: Progressing as expected Problem: Infection Risk Goal: Absence of infection 03/07/20251955 by Ann Gonzalez RN Outcome: Progressing as expected 03/07/20251954 by Ann Gonzalez RN Outcome: Progressing as expected Problem: Mobility - Impaired Goal: Able to achieve maximum mobility level 03/07/20251955 by Ann Gonzalez RN Outcome: Progressing as expected 03/07/20251954 by Ann Gonzalez RN Outcome: Progressing as expected Problem: Discharge Planning Goal: Adequate for discharge 03/07/20251955 by Ann Gonzalez RN Outcome: Progressing as expected 03/07/20251954 by Ann Gonzalez RN Outcome: Progressing as expected Goal: Effective communication 03/07/20251955 by Ann Gonzalez RN Outcome: Progressing as expected 03/07/20251954 by Ann Gonzalez RN Outcome: Progressing as expected Problem: Venous Thromboembolism, (actual or risk of) Goal: Absence of venous thromboembolism (Risk) 03/07/20251955 by Ann Gonzalez RN Outcome: Progressing as expected 03/07/20251954 by Ann Gonzalez RN Outcome: Progressing as expected Problem: Activity Intolerance Goal: Improved activity tolerance 03/07/20251955 by Ann Gonzalez RN Outcome: Progressing as expected 03/07/20251954 by Ann Gonzalez RN Outcome: Progressing as expected Ann Gonzalez RN [facility] 2025-03-07 19:55:44 Problem: Falls, Risk of Goal: Absence of falls Outcome: Progressing as expected Problem: Skin integrity Impaired (Risk or Actual) Goal: Wound healing Outcome: Progressing as expected Goal: Prevention of new skin breakdown Outcome: Progressing as expected Problem: Pain Goal: Control of pain at or below patient's documented comfort goal Outcome: Progressing as expected Goal: Reduction in pain sensation Outcome: Progressing as expected Problem: Infection Risk Goal: Absence of infection Outcome: Progressing as expected Problem: Mobility - Impaired Goal: Able to achieve maximum mobility level Outcome: Progressing as expected Problem: Discharge Planning Goal: Adequate for discharge Outcome: Progressing as expected Goal: Effective communication Outcome: Progressing as expected Problem: Venous Thromboembolism, (actual or risk of) Goal: Absence of venous thromboembolism (Risk) Outcome: Progressing as expected Problem: Activity Intolerance Goal: Improved activity tolerance Outcome: Progressing as expected [facility] 2025-03-07 04:51:58 Problem: Falls, Risk of Goal: Absence of falls Outcome: Progressing as expected Problem: Skin integrity Impaired (Risk or Actual) Goal: Wound healing Outcome: Progressing as expected Goal: Prevention of new skin breakdown Outcome: Progressing as expected Problem: Pain Goal: Control of pain at or below patient's documented comfort goal Outcome: Progressing as expected Goal: Reduction in pain sensation Outcome: Progressing as expected Problem: Infection Risk Goal: Absence of infection Outcome: Progressing as expected Problem: Mobility - Impaired Goal: Able to achieve maximum mobility level Outcome: Progressing as expected Problem: Discharge Planning Goal: Adequate for discharge Outcome: Progressing as expected Goal: Effective communication Outcome: Progressing as expected Problem: Venous Thromboembolism, (actual or risk of) Goal: Absence of venous thromboembolism (Risk) Outcome: Progressing as expected Problem: Activity Intolerance Goal: Improved activity tolerance [facility]activated [facility] Christina Harris RN [facility] 2025-03-06 15:38:44 Problem: Falls, Risk of Goal: Absence of falls Outcome: Progressing as expected Problem: Skin integrity Impaired (Risk or Actual) Goal: Wound healing Outcome: Progressing as expected Goal: Prevention of new skin breakdown Outcome: Progressing as expected Problem: Pain Goal: Control of pain at or below patient's documented comfort goal Outcome: Progressing as expected Goal: Reduction in pain sensation Outcome: Progressing as expected Problem: Infection Risk Goal: Absence of infection Outcome: Progressing as expected Problem: Mobility - Impaired Goal: Able to achieve maximum mobility level Outcome: Progressing as expected Problem: Discharge Planning Goal: Adequate for discharge Outcome: Progressing as expected Goal: Effective communication Outcome: Progressing as expected Problem: Venous Thromboembolism, (actual or risk of) Goal: Absence of venous thromboembolism (Risk) Outcome: Progressing as expected T Angelika Abdalla RN [facility] 2025-03-06 02:38:35 Problem: Falls, Risk of Goal: Absence of falls Outcome: Progressing as expected Problem: Skin integrity Impaired (Risk or Actual) Goal: Wound healing Outcome: Progressing as expected Goal: Prevention of new skin breakdown Outcome: Progressing as expected Problem: Pain Goal: Control of pain at or below patient's documented comfort goal Outcome: Progressing as expected Goal: Reduction in pain sensation Outcome: Progressing as expected Problem: Infection Risk Goal: Absence of infection Outcome: Progressing as expected Problem: Mobility - Impaired Goal: Able to achieve maximum mobility level Outcome: Progressing as expected Problem: Discharge Planning Goal: Adequate for discharge Outcome: Progressing as expected Goal: Effective communication Outcome: Progressing as expected Problem: Venous Thromboembolism, (actual or risk of) Goal: Absence of venous thromboembolism (Risk) Reactivated [facility] 2025-03-05 17:56:22 Problem: Falls, Risk of Goal: Absence of falls Outcome: Progressing as expected Problem: Skin integrity Impaired (Risk or Actual) Goal: Wound healing Outcome: Progressing as expected Goal: Prevention of new skin breakdown Outcome: Progressing as expected Problem: Pain Goal: Control of pain at or below patient's documented comfort goal Outcome: Progressing as expected Goal: Reduction in pain sensation Outcome: Progressing as expected Problem: Infection Risk Goal: Absence of infection Outcome: Progressing as expected Problem: Mobility - Impaired Goal: Able to achieve maximum mobility level Outcome: Progressing as expected Problem: Discharge Planning Goal: Adequate for discharge Outcome: Progressing as expected Goal: Effective communication Outcome: Progressing as expected [facility] 2025-03-05 16:46:42 Patient: Karina Gloria Procedure Summary Date: 03/05/25 Room / Location: [place] [id number] [facility] Anesthesia Start: 1025 Anesthesia Stop: 1423 Procedure: FUSION SPINE POSTERIOR THORACIC LUMBAR Diagnosis: Lumbar radiculopathy Weakness of left leg (Lumbar radiculopathy [M54.16]) (Weakness of left leg [R29.898]) Surgeons: Jason Jessica MD Responsible Provider: Jose Luis Bingham MD Anesthesia Type: General ASA Status: 2 Anesthesia Type: General Last vitals BP 136/76 (03/05/25 163) Temp Pulse 56 (03/05/25 163) Resp 15 (03/05/251638) SpO2 96 % (03/05/251638) There were no known notable events for this encounter. Anesthesia Post Evaluation Patient location during evaluation: PACU Patient participation: complete - patient participated Level of consciousness: awake and alert Pain score: 4 Pain management: satisfactory to patient Airway patency: patent Cardiovascular status: acceptable and blood pressure returned to baseline Respiratory status: acceptable Hydration status: acceptable AN-ANESTHESIOLOGY ANESTHESIOLOGIST [facility] 2025-03-05 11:59:39 Updated family on status of procedure. Mitch Roman RN [facility] 2025-03-05 11:46:00 BRIEF NEUROSURGERY OPERATIVE NOTE Date of Surgery: 03/05/2025 Faculty: Jason Jessica MD Resident(s): Bao Mak MD, Lico Abernathy MD Anesthesia Type: General Pre-operative diagnosis: T11-T12 disc and ligamentum hypertrophy, thoracic myelopathy Post-operative diagnosis: Same Procedures: T11-T12 laminectomies, facetectomies, fusion, arthrodesis Findings: Adhered cyst on dura Complications: none Estimated blood loss: 100mL Specimens: * No specimens in log * Implants: Implant Name Type Inv. Item Serial No. Trail Construction Worker Lot No. LRB No. Used Action DEPUY [place] SET SCREW NA DEPUY SYNTHES NA N/A 4 Implanted DEPUY SYNTHES [place] [id number] NA DEPUY SYNTHES NA N/A 4 Implanted [employer] Sebastian 40mmx 5.5 Sebastian NA DEPUY SYNTHES NA N/A 2 Implanted Drains: none Patient was extubated and transferred to the PACU without complication in stable condition. Plan: -Floor -Ancef 24 hrs -No drain -Activity as tolerated -ADAT -Pain control -PT/OT -Closed with marshal [facility] 2025-03-03 14:22:05 Spoke with patient & explained why the type & screen were needed. Patient was under the impresson that she was getting a blood transfusion. Explained they are not planned, but a risk with any surgery & the blood work is needed for precautionary reasons. Spoke about her surgery "expected" time was 325 mins, a bit over 5 hours. That the time may vary either way, a bit. Pre op phone number provided for further questions. Rosita Whelan MA [facility] 2025-03-03 13:39:28 Copied from [facility] #[id number]. Topic: Clinical - Medical Advice >> Mar 03, 2025 1:35 PM Patient Cardiac Care Nurse wrote: Karina Gloria is a 60 year old female The patient is requesting to speak with Tori Sun regarding her surgery. The patient is unwilling to provide additional details. I informed the patient that a follow-up call will be made within 2-3 days, but the patient is requesting to be contacted today. Rubina Garcia V [facility] 2025-03-03 10:15:00 Summary: Initial TS collected. No email from [facility]. Images from the original note were not included. Venipuncture collection performed by clean technique on the left anticubitus. Total of 1 attempts were made. Slight pressure and a bandage/dressing were applied to the site(s). The patient experienced no complications. The following specimens were processed according to instructions and sent to [facility] laboratories per lab order on 03/03/2025 : LT BLUE SST RED LAV 1 PPT DK GREEN (LiHep) DK GREEN (SodH) TAYLOR DK BLUE (K2) DK BLUE (S) ACD Blood Culture NIPT/NTD [facility] [place] 2025-02-24 14:14:58 Name/ MRN / Age / Gender: Karina Gloria, [id number] 60 year old female BMI: Estimated body mass index is 23.34 kg/m? as calculated from the following: Height as of 02/20/25: 1.626 m (5' 4"). Weight as of 02/20/25: 61.7 kg (136 lb). Allergies: Citric acid, Penicillin, Soap, and Sulfa (sulfonamide antibiotics) Last Vitals: BP Readings from Last 1 Encounters: 02/20/25 129/68 Pulse Readings from Last 1 Encounters: 02/20/25 75 SpO2 Readings from Last 1 Encounters: 02/20/25 100% Date of Surgery: 03/05/2025 Surgeon: Jason Jessica MD Procedure: FUSION SPINE POSTERIOR THORACIC LUMBAR OR Location: [facility] Anesthesia Preop Eval (physical exam) Anesthesia Preop: Phone Preop, Chart Review and [id number] [facility] Communication: Emailed for Typenex protocol. Lashay Perez RN 02/24/2025 2:47 PM Anesthesia History Anesthesia History Negative (-) Hx of anesthetic complications (-) Hx of PONV (-) Fam hx of anesthetic complications Previous Anesthetics/Airways Cardiovascular Negative Cardiac ROS METS Comments: Uses cane d/t back/leg pain. Uses electric scooter at grocery store. Denies CP but will get SOB on occasion, stating because she has Lyme's disease. (-) Hypertension (-) Dyslipidemia (-) Angina/Chest Pain Within Last Year (-) Valvular problems/murmurs (-) Dysrhythmias Pulmonary (-) Sleep apnea (+) Asthma (as a child mainly; does not require inhalers) (+) Shortness of breath and on exertion (+) Tobacco use (1/2 ppd x @ mid ) (-) Vaping use (-) COVID-19 within the past 6 weeks (-) Influenza within the past 6 weeks (-) Pneumonia within the last 6 weeks Neuro/Musculoskeletal Comments: CC: Lumbar radiculopathy ER Eval 01/29/25 Back pain Hx of: fibromyalgia (-) CVA(-) Seizures (+) Psychiatric history and depression (+) Osteoarthritis (+) Chronic pain: (-) Positioning limitations GI/Hepatic (+) GERD (uses TUMS PRN) and controlled with meds (-) Liver disease Hematology Comments: Diagnosed w/Lyme's disease @ 2010. Has chronic fatigue. 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 Hold on DOS. Phentermine: Alert [facility] anesthesiologist SGLT2 Inhibitors: "gliflozins" to be held for 3 days prior to elective surgeries GLP1 Agonosit: stop 7 days prior to surgery MAC Cases: Continue taking VEE inhibitors and ARBs ASA Classification ASA: 2 Labs: Chemistry - CBC - - - - - - - - - - - - eGFR: - Date: - ANC: - Date: - LFTs - Coags AST: - AP: - Prot: - Ca: - PT: - Date: - ALT: - T Tobias: - Alb: - PTT: - Date: - PO4: - Date: - INR: - Date: - Cardiac Endocrine & other pBNP: - Date: - A1C: - Date: - Trop I: - Date: - POCT A1C: - Date: - CK: - Date: - TSH: - Date: - CKMB: - Date: - FT4: - Date: - LDL: - Date: - Lact: - Date: - Procal: - Date: - Respiratory -|-|-|-|- D-dimer: - ABG Date: - Date: - Miscellaneous Type and Screen: - Antibody: - Date: - POCT : - Date: - Current Medications: No current facility-administered medications for this encounter. Current Outpatient Medications Medication Sig Dispense Refill cyclobenzaprine 5 mg tablet Take 1 tablet by mouth in the morning and 1 tablet at noon and 1 tablet in the evening. 30 tablet 0 ibuprofen 600 mg tablet Take 1 tablet by mouth in the morning and 1 tablet at noon and 1 tablet in the evening. Take with meals. 15 tablet 0 acetaminophen-codeine 300-30 mg tablet TAKE 1 TABLET BY MOUTH EVERY 4-8 HOURS NEEDED FOR PAIN buPROPion XL 300 mg 24 hr tablet Take 1 tablet by mouth in the morning. cetirizine (ZYRTEC) 10 mg tablet Take 1 tablet by mouth daily. 30 tablet 0 clindamycin 300 mg capsule TAKE ONE CAPSULE BY MOUTH THREE TIMES DAILY UNTIL ALL TAKEN dextroamphetamine-amphetam ine 20 mg tablet Take 1 tablet by mouth in the morning. diazePAM 2 mg tablet famciclovir 500 mg tablet TAKE 1 TABLET BY MOUTH TWICE DAILY FOR 4 WEEKS gabapentin 600 mg tablet Take 1 tablet by mouth in the morning. hydrOXYzine 50 mg tablet Take 1 tablet by mouth in the morning and 1 tablet at noon and 1 tablet in the evening. traZODone 150 mg tablet Previous Surgeries: No past surgical history on file. Anesthesia Physical Exam General alert and oriented x 3 Neuro/Psych Dental Abdominal Airway Mallampati score:I TM distance:< 5 cm Neck ROM: full Mouth opening:normal Extremity Pulmonary Other Cardiovascular Anesthesia Plan ASA Status: 2 Plan discussed during pre-op evaluation: General Anesthetic plan on DOS: General Plan to include: ETT and IV induction Anesthesia plan discussed with: patient or safety representative Post-Operative Analgesia: routine analgesia & antiemetics Recovery Plan: PACU Additional comments: AN-ANESTHESIOLOGY ANESTHESIOLOGIST [facility] 2025-02-23 14:00:10 Karina Gloria is a 60 year old female Randy calling from [place] states the pt has an order to have PT done. Randy would like to know if it has to be done before the pt surgery 03/05 Please call Randy [phone] [place] V [facility] 2025 15:38:46 Spoke with Ms. Gloria who obtained the MRI CD and report. Endorses symptoms worsening with perineal numbness and paresthesias. Referral for PT and pain obtained pending scheduling. Wishes to be seen by faculty at [facility] in [place]. Will OB her with Dr. Jessica 02/20/25 at 1300. Agrees with plan and will bring imaging to the visit for review. [facility] 2025 14:32:31 Karina Gloria is a 60 year old female Pt calling states she would like to speak with nurse Sun. Pt was asked about if she had the imaging that was requested and she stated she did not have questions to ask me she wants to speak with nurse Sun Please call the pt Work Phone Not on file. [place] V [facility] 2025-01-29 17:38:24 Patient is awake and alert, oriented x4, speech is clear and appropriate, ambulatory with a steady gait. Advised to seek medical attention for new/prolonged/worsening of symptoms. Respirations even and unlabored, no distress. [facility] 2025-01-29 13:49:41 Pt states she hurt her back at work a couple weeks ago walking and lifting cases of beer and ice, can barely walk now, legs feel like rubber, burning pain in hips, constipation. Denies trouble with urination. Pt c/o of lower back pain that radiates down legs intermittently. Took ibuprofen 1145 today. Hx lyme disease, fibromyalgia Marga Barnett RN [facility] 2025-01-29 13:44:00 [facility] Emergency Department Note Demographics Patient Name: Karina Gloria Date of : 1965 59 year old Treatment Room: [facility] Primary Care Physician: Angelika Jacinto Pre Hospital Care Patient Escorted by: Family [5] Mode of Arrival: Personal means [1] EMS Treatment Prior to ED Arrival: RATE ENGINEER treatment: Medication (comment) RATE ENGINEER treatment comments: Ibuprofen ED Events Date/Time Event User Comments 01/29/25 1349 Medical Screening Begins SHIRA HO MD -- 01/29/25 1349 First Provider Evaluation SHIRA HO MD -- Chief complaint Chief Complaint Patient presents with Back Pain ED Triage Notes Marga Barnett RN 01/29/2025 13:55 Pt states she hurt her back at work a couple weeks ago walking and lifting cases of beer and ice, can barely walk now, legs feel like rubber, burning pain in hips, constipation. Denies trouble with urination. Pt c/o of lower back pain that radiates down legs intermittently. Took ibuprofen 1145 today. Hx lyme disease, fibromyalgia Chief Complaint Patient presents with Back Pain History of present illness HPI History of Present Illness This is a patient with a history of Lyme disease and fibromyalgia presenting with worsening back pain. 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 The pain is localized in her lower back and radiates around her hips, described as a burning sensation. Occasionally, she experiences shooting pain down her leg, which she describes as feeling weak and rubbery. She has been falling frequently due to the intensity of the pain and has bruises from falling. She has difficulty moving one of her legs while seated, attributing the pain to her back. The patient consulted her primary care physician last week, who suggested an MRI, but it has not yet been scheduled. No bladder or bowel incontinence, no sensory changes. Additionally, the patient is experiencing constipation but maintains control over her urination. BP (!) 128/91 | Pulse 83 | Temp 36.7 ?C (98.1 ?F) (Oral) | Resp 16 | Ht 1.626 m (5' 4") | Wt 59 kg (130 lb) | SpO2 100% | BMI 22.31 kg/m? Past Medical and Social History History reviewed. No pertinent past medical history. Tetanus received in last 5 years: Unknown Social History Tobacco Use Smoking status: Never Smokeless tobacco: Never Past Surgical History History reviewed. No pertinent surgical history. Medications Medications ketorolac (TORADOL) injection 30 mg (30 mg Intramuscular Given 01/29/25 1523) HYDROcodone-acetaminophen (NORCO 5) 5-325 mg tablet 1 tablet (1 tablet Oral Given 01/29/25 1522) dexamethasone sod phos PF injection 10 mg (10 mg Oral Given 01/29/25 1522) Allergies Allergies Allergen Reactions Citric Acid Unknown - See comments Penicillin Unknown - See comments Soap Unknown - See comments Sulfa (Sulfonamide Antibiotics) Unknown - See comments Review of Systems Review of Systems Constitutional: Negative. HENT: Negative. Eyes: Negative. Respiratory: Negative. Cardiovascular: Negative. Gastrointestinal: Negative. Genitourinary: Negative. Musculoskeletal: Positive for back pain. Skin: Negative. Neurological: Negative. Psychiatric/Behavioral: Negative. Endocrine: Endocrine negative Physical Exam BP (!) 128/91 | Pulse 83 | Temp 36.7 ?C (98.1 ?F) (Oral) | Resp 16 | Ht 1.626 m (5' 4") | Wt 59 kg (130 lb) | SpO2 100% | BMI 22.31 kg/m? Physical Exam Vitals and nursing note reviewed. Constitutional: General: She is not in acute distress. Appearance: She is well-developed and normal weight. She is not ill-appearing. HENT: Head: Normocephalic and atraumatic. Right Ear: External ear normal. Left Ear: External ear normal. Nose: Nose normal. No congestion or rhinorrhea. Mouth/Throat: Pharynx: No oropharyngeal exudate or posterior oropharyngeal erythema. Eyes: General: Right eye: No discharge. Left eye: No discharge. Conjunctiva/sclera: Conjunctivae normal. Pupils: Pupils are equal, round, and reactive to light. Cardiovascular: Rate and Rhythm: Normal rate and regular rhythm. Heart sounds: Normal heart sounds. No murmur heard. No friction rub. Pulmonary: Effort: Pulmonary effort is normal. No respiratory distress. Breath sounds: Normal breath sounds. No stridor. No wheezing or rhonchi. Abdominal: General: Bowel sounds are normal. There is no distension. Palpations: Abdomen is soft. There is no mass. Tenderness: There is no abdominal tenderness. Hernia: No hernia is present. Musculoskeletal: General: No swelling, tenderness, deformity or signs of injury. Normal range of motion. Cervical back: Normal range of motion and neck supple. No rigidity or tenderness. Skin: General: Skin is warm. Capillary Refill: Capillary refill takes less than 2 seconds. Coloration: Skin is not jaundiced or pale. Findings: No bruising or erythema. Neurological: General: No focal deficit present. Mental Status: She is alert and oriented to person, place, and time. Cranial Nerves: No cranial nerve deficit. Sensory: No sensory deficit. Motor: No weakness. Coordination: Coordination normal. Psychiatric: Mood and Affect: Mood normal. Behavior: Behavior normal. Thought Content: Thought content normal. Judgment: Judgment normal. Labs and Studies Lab Results - No data to display CT Lumbar spine wo contrast Final Result CT LUMBAR SPINE WO CONTRAST HISTORY: 59 years old, Female with Low back pain, cauda equina syndrome suspected COMPARISON: None. TECHNIQUE: Axial images of the lumbar spine were obtained without administration of IV contrast. Coronal and sagittal images were reformatted. FINDINGS: The lumbar curvature is normal. The vertebral bodies are normal in height and in normal alignment. No facet fracture or subluxation is present. Mild spondylotic changes in the form of disc space narrowing and marginal osteophytes most pronounced at L1-L2. Shallow disc herniations at L3-L4 through L5-S1 most pronounced at the lumbosacral junction where vacuum phenomenon is also seen. A 1.7 cm left adrenal nodule demonstrating intralesional density compatible with adenoma. The paraspinal soft tissue are unremarkable. IMPRESSION No acute fracture or traumatic malalignment in the lumbar spine. Mild multilevel degenerative changes. Preliminary Report Dictated by Resident: Campos Batres MD., have reviewed this study and agree with the above report. Orders and Treatments Orders Placed This Encounter Procedures CT Lumbar spine wo contrast Orders Placed This Encounter Medications DISCONTD: dexamethasone sod phos PF injection 10 mg ketorolac (TORADOL) injection 30 mg HYDROcodone-acetaminophen (NORCO 5) 5-325 mg tablet 1 tablet dexamethasone sod phos PF injection 10 mg cyclobenzaprine 5 mg tablet ibuprofen 600 mg tablet Patient's Medications START taking these medications CYCLOBENZAPRINE 5 MG TABLET Take 1 tablet by mouth in the morning and 1 tablet at noon and 1 tablet in the evening. IBUPROFEN 600 MG TABLET Take 1 tablet by mouth in the morning and 1 tablet at noon and 1 tablet in the evening. Take with meals. CONTINUE taking these medications which have NOT CHANGED ACETAMINOPHEN-CODEINE 300-30 MG TABLET TAKE 1 TABLET BY MOUTH EVERY 4-8 HOURS NEEDED FOR PAIN BUPROPION XL 300 MG 24 HR TABLET Take 300 mg by mouth daily. CETIRIZINE (ZYRTEC) 10 MG TABLET Take 1 tablet by mouth daily. CLINDAMYCIN 300 MG CAPSULE TAKE ONE CAPSULE BY MOUTH THREE TIMES DAILY UNTIL ALL TAKEN DEXTROAMPHETAMINE-AMPHETAM INE 20 MG TABLET Take 20 mg by mouth daily. DIAZEPAM 2 MG TABLET FAMCICLOVIR 500 MG TABLET TAKE 1 TABLET BY MOUTH TWICE DAILY FOR 4 WEEKS GABAPENTIN 600 MG TABLET Take 600 mg by mouth daily. HYDROXYZINE 50 MG TABLET Take 50 mg by mouth 3 (three) times daily. TRAZODONE 150 MG TABLET START taking Modified Medications as Prescribed No medications on file STOP taking these medications IBUPROFEN 800 MG TABLET TAKE 1 TABLET BY MOUTH EVERY 6 TO 8 HOURS NEEDED FOR PAIN Procedures Procedures Evidence Care MDM & Notes Patient was evaluated for an emergency medical condition related to Back Pain Diagnosis/Impression as of 01/29/25 1732 Chronic left-sided low back pain without sciatica Medical Decision Making Amount and/or Complexity of Data Reviewed Radiology: ordered. Risk Prescription drug management. Assessment & Plan Initial Assessment: The patient presents with worsening lower back pain following an injury from lifting heavy objects while bartending. The pain occasionally radiates down the leg, and there is associated weakness in the leg. The patient also reports difficulty with bowel movements. Differential Diagnosis: - Musculoskeletal strain: Recent heavy lifting, localized lower back pain, occasional leg pain. Plan: Order CAT scan of the lower spine, prescribe steroids for inflammation. - Herniated disc: Shooting pain down the leg, leg weakness. Plan: Order CAT scan of the lower spine, prescribe steroids for inflammation. - Constipation: Difficulty with bowel movements. Plan: Address constipation as needed. ED Course: - CAT scan of the lower spine ordered - Steroids prescribed for inflammation Final Assessment: The patient presents with lower back pain and leg weakness following heavy lifting. A CAT scan of the lower spine was ordered, and steroids were prescribed for inflammation. The patient also reports constipation. CT scan of the lumbar spine shows no acute fracture or traumatic malalignment in the lumbar spine there is mild multilevel degenerative changes. Low disc herniation at L3-L4 through L5-S1 most pronounced at the lumbosacral junction mild spinal dialytic changes in the form of disc space narrowing and marginal osteophytes most pronounced at L1-L2. The patient feels much better after dose of steroids and pain medications. I will discharge the patient home with muscle relaxation Flexeril and NSAIDs. Follow-up with orthospine no red flags at this time for cauda equina. Advised to return to emergency department if worsening of symptoms or any other problems. The patient understands and agrees with the plan. Clinical Impression: - Musculoskeletal strain - Herniated disc - Constipation Disposition: - Follow-Up: Follow up with regular doctor for MRI scheduling Pulse Oximetry: is not hypoxic. Interpreted. Reassessment:stable Limitations to patient care and compliance: none. Disposition & Follow Up ED Disposition ED Disposition Discharge Condition Stable Comment -- Patient's Medications START taking these medications CYCLOBENZAPRINE 5 MG TABLET Take 1 tablet by mouth in the morning and 1 tablet at noon and 1 tablet in the evening. IBUPROFEN 600 MG TABLET Take 1 tablet by mouth in the morning and 1 tablet at noon and 1 tablet in the evening. Take with meals. CONTINUE taking these medications which have NOT CHANGED ACETAMINOPHEN-CODEINE 300-30 MG TABLET TAKE 1 TABLET BY MOUTH EVERY 4-8 HOURS NEEDED FOR PAIN BUPROPION XL 300 MG 24 HR TABLET Take 300 mg by mouth daily. CETIRIZINE (ZYRTEC) 10 MG TABLET Take 1 tablet by mouth daily. CLINDAMYCIN 300 MG CAPSULE TAKE ONE CAPSULE BY MOUTH THREE TIMES DAILY UNTIL ALL TAKEN DEXTROAMPHETAMINE-AMPHETAM INE 20 MG TABLET Take 20 mg by mouth daily. DIAZEPAM 2 MG TABLET FAMCICLOVIR 500 MG TABLET TAKE 1 TABLET BY MOUTH TWICE DAILY FOR 4 WEEKS GABAPENTIN 600 MG TABLET Take 600 mg by mouth daily. HYDROXYZINE 50 MG TABLET Take 50 mg by mouth 3 (three) times daily. TRAZODONE 150 MG TABLET START taking Modified Medications as Prescribed No medications on file STOP taking these medications IBUPROFEN 800 MG TABLET TAKE 1 TABLET BY MOUTH EVERY 6 TO 8 HOURS NEEDED FOR PAIN Diagnoses ICD-10-CM 1. Chronic left-sided low back pain without sciatica M54.50 G89.29 Disposition and Condition ED Disposition ED Disposition Discharge Condition Stable Comment -- Patient's Medications START taking these medications CYCLOBENZAPRINE 5 MG TABLET Take 1 tablet by mouth in the morning and 1 tablet at noon and 1 tablet in the evening. IBUPROFEN 600 MG TABLET Take 1 tablet by mouth in the morning and 1 tablet at noon and 1 tablet in the evening. Take with meals. CONTINUE taking these medications which have NOT CHANGED ACETAMINOPHEN-CODEINE 300-30 MG TABLET TAKE 1 TABLET BY MOUTH EVERY 4-8 HOURS NEEDED FOR PAIN BUPROPION XL 300 MG 24 HR TABLET Take 300 mg by mouth daily. CETIRIZINE (ZYRTEC) 10 MG TABLET Take 1 tablet by mouth daily. CLINDAMYCIN 300 MG CAPSULE TAKE ONE CAPSULE BY MOUTH THREE TIMES DAILY UNTIL ALL TAKEN DEXTROAMPHETAMINE-AMPHETAM INE 20 MG TABLET Take 20 mg by mouth daily. DIAZEPAM 2 MG TABLET FAMCICLOVIR 500 MG TABLET TAKE 1 TABLET BY MOUTH TWICE DAILY FOR 4 WEEKS GABAPENTIN 600 MG TABLET Take 600 mg by mouth daily. HYDROXYZINE 50 MG TABLET Take 50 mg by mouth 3 (three) times daily. TRAZODONE 150 MG TABLET START taking Modified Medications as Prescribed No medications on file STOP taking these medications IBUPROFEN 800 MG TABLET TAKE 1 TABLET BY MOUTH EVERY 6 TO 8 HOURS NEEDED FOR PAIN [employer] is used frequently and may produce errors. Promptly contact for obvious discrepancies. Shira Ho MD, FACEP, FAAEM [facility] [employer] of Emergency and Internal Medicine [facility], [facility] #[id number] Shira Ho MD 01/29/25 0502 [facility]
[2025-04-20] MEDS ORDERED: ONDANSETRON 4 MG/2 ML VIAL ONE (22:46)
[2025-04-20] MEDS ORDERED: KETOROLAC 30 MG/ML INJ ONE (22:46)
[2025-04-20] MEDS ORDERED: MORPHINE 4 MG/ML SYR ONE (22:47)
[2025-04-20] MEDS ORDERED: NA CHLORIDE 0.9% 1,000 ML ONE (22:47)
[2025-04-21 00:01] LABS: Urine Microscopic Reflex YN NO UMIC
[2025-04-21 00:09] LABS: METHAMPHETAM POSITIVE (NEGATIVE); THC Cannibis NEGATIVE (NEGATIVE)
[2025-04-21 00:28] LABS: Absolute Lymphocytes (CBC) 3.2 K/uL (0.7-4.9); Hematocrit 36.4 % (36.0-45.0); Hemoglobin 12.6 g/dL (12.0-15.0); MCH 32.1 pg (27.0-35.0); MCHC 34.6 g/dL (32.0-36.0); MCV 92.9 fL (80-100); MPV 8.9 fL (7.6-11.3); Nucleated RBC Absolute Count 0.0 (0-0); Nucleated Red Blood Cells % 0.0 % (0-0); RBC Red Blood Cell Count 3.91 M/uL (3.86-4.86); White Blood Count 8.40 thou/uL (4.3-10.9)
[2025-04-21 00:39] LABS: ALT/SGPT 20.0 U/L (13-56); AST/SGOT 14.0 U/L (15-37); Albumin 3.3 g/dL (3.4-5.0); Albumin/Globulin Ratio 0.9 (1.1-1.8); Alkaline Phosphatase 100.0 U/L (45-117); Anion Gap 11.4 mEq/L (5.0-15.0); BUN Blood Urea Nitrogen 10.0 mg/dL (7-18); Globulin 3.6 g/dL (2.3-3.5); Glucose Level 89.0 mg/dL (74-106); Lipase 59.0 U/L (13-75); NT PRO-BNP 103.0 pg/mL (<125); Potassium 3.4 mEq/L (3.5-5.1); Troponin High Sensitivity 4.5 pg/mL (<58.9)
--- NOTE | 2025-04-21 03:56 | EDPHYS ---
Physician Documentation [facility] Name: Karina Vicente Age: 60 yrs Sex: Female : 1965 Arrival Date: 04/20/2025 Time: 22:28 Bed 16 Private MD: ED Physician Antonio Hauser HPI: 04/21 03:47 This 60 yrs old Female presents to ER via EMS with complaints of Breathing sp4 Difficulty, Back Pain. 22:42 60-year-old female presents with acute panic attack. Patient presents with acute sp4 difficulty breathing and worsening back pain. Patient reports 3 weeks ago she had decompressive laminectomy and put her back. Appears to have kendell panic attack on arrival.. Historical: - Allergies: 04/20 22:56 PENICILLINS; kj2 22:56 Sulfa (Sulfonamide Antibiotics); kj2 - PSHx: 22:56 right buccal biopsy; kj2 - Immunization history:: Adult Immunizations unknown. - Infectious Disease History:: Denies. - Family history:: not pertinent. - Social history:: Smoking status: unknown. ROS: 04/21 22:43 Constitutional: Negative for fever, chills, and weight loss, positive anxiety and sp4 panic, positive dyspnea, positive back pain All other systems are negative, Exam: 22:43 Constitutional: This is a well developed, well nourished patient who is awake, alert, sp4 acutely anxious with elements of panic attack, thrashing around the bed and screaming Head/Face: Normocephalic, atraumatic. Eyes: Pupils equal round and reactive to light, extra-ocular motions intact. Lids and lashes normal. Conjunctiva and sclera are not injected. Cornea within normal limits. Periorbital areas with no swelling, redness, or edema. ENT: Nares patent. No nasal discharge, no septal abnormalities noted. Tympanic membranes are normal and external auditory canals are clear. Oropharynx with no redness, swelling, or masses, exudates, or evidence of obstruction, uvula midline. Mucous membranes moist. Neck: Trachea midline, no thyromegaly or masses palpated, and no cervical lymphadenopathy. Supple, full range of motion without nuchal rigidity, or vertebral point tenderness. Chest/axilla: Normal chest wall appearance and motion. Nontender with no deformity. No lesions are appreciated. Cardiovascular: Regular rate and rhythm with a normal S1 and S2. No gallops, murmurs, or rubs. No pulse deficits. Respiratory: Lungs have equal breath sounds bilaterally, clear to auscultation and percussion. No rales, rhonchi or wheezes noted. No increased work of breathing, no retractions or nasal flaring. Abdomen/GI: Soft, with normal bowel sounds. No distension or tympany. No guarding or rebound. No evidence of tenderness throughout. Back: No spinal tenderness. No costovertebral tenderness. Skin: Warm, dry with normal turgor. Normal color with no rashes, no lesions, and no evidence of cellulitis. MS/ Extremity: Pulses equal, no cyanosis. Neurovascular intact. Full, normal range of motion. Neuro: Awake and alert, GCS 15, oriented to person, place, time, and situation. Cranial nerves II-XII grossly intact. Motor strength 5/5 in all extremities. Sensory grossly intact. Psych: Psych: Vital Signs: 04/20 22:58 BP 110 / 71; Pulse 71; Resp 20; Pulse Ox 100% ; Weight 58.06 kg; Height 5 ft. 4 in. ; kj2 23:09 BP 108 / 63; Pulse 74; Resp 18; Pulse Ox 92% on R/A; kj2 04/21 00:00 BP 116 / 69; Pulse 65; Resp 20; Pulse Ox 97% on R/A; kj2 00:56 BP 95 / 59; Pulse 63; Resp 15; Pulse Ox 96% on R/A; kb4 03:12 BP 97 / 69; Pulse 64; Resp 18; Pulse Ox 96% on R/A; kb4 04:00 BP 98 / 61; Pulse 66; Resp 16; Pulse Ox 95% on R/A; al5 04:30 BP 101 / 59; Pulse 61; Resp 16; Pulse Ox 95% on R/A; al5 04/20 22:58 Body Mass Index 21.97 (58.06 kg, 162.56 cm) kj2 Porfirio Coma Score: 22:43 Eye Response: spontaneous(4). Motor Response: obeys commands(6). Verbal Response: sp4 oriented(5). Total: 15. MDM: 04/20 22:38 Medical Screening Exam initiated sp4 04/21 03:47 ED course: CHEST FINDINGS: LOWER NECK: Unremarkable. AIRWAYS: Trachea and mainstem sp4 bronchi are patent. LUNGS/PLEURA: Patchy streaky opacities at bilateral lower lobes may represent subsegmental atelectasis or infiltrates. No focal air space consolidation. No discrete mass or nodules. No pleural effusions or pneumothorax. VASCULATURE: No evidence of thoracic aortic aneurysm or dissection. MEDIASTINUM/NODES: No pathologic adenopathy. HEART: Normal heart size. No pericardial effusion. CHEST WALL: Unremarkable. BONES: Postsurgical changes previous T11-T12 posterior spinal fusion and laminectomies. Beam hardening artifact from hardware degrades the exam. No hardware loosening or disruption. Stranding in the paraspinal and subcutaneous soft tissue at the surgical site of posterior trunk may represent scarring or edema. No large collection. ABDOMEN/PELVIS FINDINGS: LIVER: Unremarkable. BILIARY: No calcified gallstones. No pericholecystic fluid. Common bile duct is mildly prominent caliber, measuring up to 7 mm in diameter.. PANCREAS: Mildly prominent pancreatic duct without kendell dilatation. No focal pancreatic lesion. SPLEEN: Unremarkable. ADRENALS: Unremarkable. KIDNEYS/URETERS: Unremarkable. STOMACH: Small hiatal hernia. BOWEL: Colonic diverticulosis without acute diverticulitis. No focal bowel wall thickening or dilatation. No bowel obstruction. APPENDIX: Appendix is not definitively visualized. No focal inflammation in right lower quadrant to suggest acute appendicitis. PERITONEUM/RETROPERITONEUM: Unremarkable. LYMPH NODES: Unremarkable. URINARYBLADDER: Unremarkable. REPRODUCTIVE: Unremarkable. VASCULATURE: Moderate atherosclerotic calcification of abdominal aorta without aneurysm. ABDOMINAL/PELVIC WALL: Unremarkable. BONES: No acute bony abnormality. No vertebral compression deformities. No suspicious sclerotic or lytic bone lesion. IMPRESSION: 1. Patchy streaky opacities at bilateral lower lobes may represent subsegmental atelectasis or infiltrates. 2. Mildly prominent common bile duct and pancreatic duct without kendell dilatation. Correlation with liver function test is recommended. Follow-up with abdominal ultrasound can be considered. 3. Colonic diverticulosis without acute diverticulitis. 4. Postsurgical changes from previous T11-T12 posterior spinal fusion and laminectomies. Fat stranding in the paraspinal and subcutaneous soft tissue at the surgical site of posterior trunk may represent scarring or edema. No large collection. Electronically signed by: Carlita Cortes MD 04/21/2025 03:42 AM CDT RP. 22:55 Differential diagnosis: Anemia Anxiety Reaction asthma, Bronchitis CHF exacerbation, sp4 Chronic Obstructive Pulmonary Disease Psychogenic. Data reviewed: vital signs, nurses notes, EMS record, old medical records, lab test result(s), EKG, radiologic studies, CT scan. Consideration of Admission/Observation Escalation of care including admission/observation considered. ED course: Patient is stable for discharge home. 04/20 22:34 Order name: CBC with Diff; Complete Time: 02:15 sp4 04/20 22:34 Order name: CMP; Complete Time: 02:15 sp4 04/20 22:34 Order name: Lipase; Complete Time: 02:15 sp4 04/20 22:34 Order name: Troponin High Sensitivity; Complete Time: 02:15 sp4 04/20 22:34 Order name: BNP; Complete Time: 02:15 sp4 04/20 22:35 Order name: CK; Complete Time: 02:15 sp4 04/20 22:35 Order name: Alcohol Level; Complete Time: 02:15 sp4 04/20 22:35 Order name: Urine Drug Screen; Complete Time: 00:31 sp4 04/20 22:35 Order name: UA Rfx Ac Cult if indicated; Complete Time: 00:04 sp4 04/20 22:34 Order name: CT Chest, Abdomen, Pelvis - W/Contrast sp4 04/20 22:34 Order name: IV Saline Lock; Complete Time: 22:44 sp4 04/20 22:34 Order name: Labs collected and sent; Complete Time: 22:44 sp4 Administered Medications: 04/20 22:52 Drug: Ativan IVP 2 mg IVP once Route: IVP; Site: left forearm; kj2 04/21 01:06 Follow up: Response: No adverse reaction [facility] 04/20 23:05 Not Given (Duplicate Order): lorazepam2 mg IM once ha1 23:30 Drug: TORadol - Ketorolac IVP 30 mg IVP once Route: IVP; Site: left antecubital; kb4 04/21 01:06 Follow up: Response: No adverse reaction [facility] 04/20 23:30 Drug: Ondansetron IVP 8 mg IVP once; over 2 minutes Route: IVP; Site: left antecubital; kb4 04/21 01:06 Follow up: Response: No adverse reaction [facility] 04/20 23:30 Drug: NS 0.9% IV 1000 ml IV at 1 bolus Per protocol; to be given as a bolus over 60 kb4 minutes Route: IV; Rate: 1 bolus; Site: left antecubital; 04/21 01:06 Follow up: Response: No adverse reaction [facility] 04/20 23:31 Drug: morphine IVP or IV 4 mg IVP once over 4 mins Route: IVP; Infused Over: 4 mins; kb4 Site: left antecubital; 04/21 01:06 Follow up: Response: No adverse reaction [facility] 04/20 23:31 Drug: Droperidol IVP 1.25 mg IVP once Route: IVP; Site: left antecubital; 4 04/21 01:06 Follow up: Response: No adverse reaction kb4 Disposition: 22:55 Chart complete. sp4 Disposition Summary: 04/21/25 03:55 Discharge Ordered Notes: Location: Home sp4 Problem: new sp4 Symptoms: have improved sp4 Condition: Stable sp4 Diagnosis - Acute anxiety attack, postoperative back pain, history of T11-T12 fusion and sp4 laminectomy - Acute dyspnea sp4 Followup: sp4 - With: Private Physician - When: 7 - 10 days - Reason: Recheck today's complaints Discharge Instructions: - Discharge Summary Sheet sp4 - Spinal Fusion, Adult, Care After, [id number] sp4 Forms: - Patient Portal Instructions sp4 Signatures: Dispatcher [employer] Antonio Patel MD MD sp4 Erin De La Torre RN RN kj2 Danelle Rodriguez RN RN kb4 China Mary RN ha1 Corrections: (The following items were deleted from the chart) 04/20 22:34 22:34 CBC+H.LAB.BRZ ordered. EDMS EDMS 22:34 22:34 COMPREHENSIVE METABOLIC PANEL+C.LAB.BRZ ordered. EDMS EDMS 22:34 22:34 LIPASE+C.LAB.BRZ ordered. EDMS EDMS 04/21 22:55 22:43 Constitutional: This is a well developed, well nourished patient who is awake, sp4 alert, Head/Face: Normocephalic, atraumatic. Eyes: Pupils equal round and reactive to light, extra-ocular motions intact. Lids and lashes normal. Conjunctiva and sclera are not injected. Cornea within normal limits. Periorbital areas with no swelling, redness, or edema. ENT: Nares patent. No nasal discharge, no septal abnormalities noted. Tympanic membranes are normal and external auditory canals are clear. Oropharynx with no redness, swelling, or masses, exudates, or evidence of obstruction, uvula midline. Mucous membranes moist. Neck: Trachea midline, no thyromegaly or masses palpated, and no cervical lymphadenopathy. Supple, full range of motion without nuchal rigidity, or vertebral point tenderness. Chest/axilla: Normal chest wall appearance and motion. Nontender with no deformity. No lesions are appreciated. Cardiovascular: Regular rate and rhythm with a normal S1 and S2. No gallops, murmurs, or rubs. No pulse deficits. Respiratory: Lungs have equal breath sounds bilaterally, clear to auscultation and percussion. No rales, rhonchi or wheezes noted. No increased work of breathing, no retractions or nasal flaring. Abdomen/GI: Soft, with normal bowel sounds. No distension or tympany. No guarding or rebound. No evidence of tenderness throughout. Back: No spinal tenderness. No costovertebral tenderness. Skin: Warm, dry with normal turgor. Normal color with no rashes, no lesions, and no evidence of cellulitis. MS/ Extremity: Pulses equal, no cyanosis. Neurovascular intact. Full, normal range of motion. Neuro: Awake and alert, GCS 15, oriented to person, place, time, and situation. Cranial nerves II-XII grossly intact. Motor strength 5/5 in all extremities. Sensory grossly intact. Psych: Awake, alert, with orientation to person, place and time. Behavior, mood, and affect are within normal limits sp4
--- NOTE | 2025-04-21 03:56 | ER ---
Nurse's Notes [facility] Name: Karina Vicente Age: 60 yrs Sex: Female : 1965 Arrival Date: 04/20/2025 Time: 22:28 Bed 16 Private MD: Diagnosis: Acute anxiety attack, postoperative back pain, history of T11-T12 fusion and laminectomy;Acute dyspnea Presentation: 04/20 22:59 Chief complaint: EMS states: toned ot for difficulty breathing and pain in the center kj2 of her back from recent back surgery. Coronavirus screen: Client denies travel out of the [place] in the last 14 days. Ebola Screen: No symptoms or risks identified at this time. Initial Sepsis Screen: Does the patient meet any 2 criteria? No. Patient's initial sepsis screen is negative. Does the patient have a suspected source of infection? No. Patient's initial sepsis screen is negative. Risk Assessment: Do you want to hurt yourself or someone else? Patient reports no desire to harm self or others. Onset of symptoms was April 20, 2025. 22:59 Method Of Arrival: EMS: [facility] kj2 22:59 Acuity: AMY 3 kj2 Historical: - Allergies: 22:56 PENICILLINS; kj2 22:56 Sulfa (Sulfonamide Antibiotics); kj2 - PSHx: 22:56 right buccal biopsy; kj2 - Immunization history:: Adult Immunizations unknown. - Infectious Disease History:: Denies. - Family history:: not pertinent. - Social history:: Smoking status: unknown. Screenin:57 [facility] ED Fall Risk Assessment (Adult) History of falling in the last 3 months, kj2 including since admission No falls in past 3 months (0 pts) Confusion or Disorientation No (0 pts) Intoxicated or Sedated No (0 pts) Impaired Gait No (0 pts) Mobility Assist Device Used No (0 pt) Altered Elimination No (0 pt) Score/Fall Risk Level 0 - 2 = Low Risk Maintained a safe environment, Hourly rounding (assess needs \T\ fall precautionary measures) done. Abuse screen: Denies threats or abuse. Denies injuries from another. Nutritional screening: No deficits noted. Tuberculosis screening: No symptoms or risk factors identified. Assessment: 22:54 General: Appears uncomfortable, Behavior is anxious. Pain: Complains of pain in back kj2 Pain currently is 7 out of 10 on a pain scale. Neuro: Level of Consciousness is awake, alert, obeys commands, Oriented to person, place, time, situation. Cardiovascular: Patient's skin is warm and dry. Respiratory: Airway is patent Respiratory effort is even, unlabored. GI: No signs and/or symptoms were reported involving the gastrointestinal system. : No signs and/or symptoms were reported regarding the genitourinary system. 04/21 00:00 Reassessment: Patient appears in no apparent distress at this time. Patient and/or kj2 family updated on plan of care and expected duration. Pain level reassessed. 00:56 General: Appears in no apparent distress. comfortable, Behavior is calm, cooperative. kb4 Pain:. Cardiovascular: Patient's skin is warm and dry. Respiratory: Airway is patent Respiratory effort is even, unlabored. GI: No signs and/or symptoms were reported involving the gastrointestinal system. : No signs and/or symptoms were reported regarding the genitourinary system. EENT: No signs and/or symptoms were reported regarding the EENT system. 03:12 Reassessment: Patient appears in no apparent distress at this time. Patient and/or kb4 family updated on plan of care and expected duration. Pain level reassessed. Patient is alert, oriented x 3, equal unlabored respirations, skin warm/dry/pink. 04:45 Reassessment: No changes from previously documented assessment. al5 05:05 Reassessment: discharged to [facility] awaiting for ride home. al5 Vital Signs: 04/20 22:58 BP 110 / 71; Pulse 71; Resp 20; Pulse Ox 100% ; Weight 58.06 kg; Height 5 ft. 4 in. ; kj2 23:09 BP 108 / 63; Pulse 74; Resp 18; Pulse Ox 92% on R/A; kj2 04/21 00:00 BP 116 / 69; Pulse 65; Resp 20; Pulse Ox 97% on R/A; kj2 00:56 BP 95 / 59; Pulse 63; Resp 15; Pulse Ox 96% on R/A; kb4 03:12 BP 97 / 69; Pulse 64; Resp 18; Pulse Ox 96% on R/A; kb4 04:00 BP 98 / 61; Pulse 66; Resp 16; Pulse Ox 95% on R/A; al5 04:30 BP 101 / 59; Pulse 61; Resp 16; Pulse Ox 95% on R/A; al5 04/20 22:58 Body Mass Index 21.97 (58.06 kg, 162.56 cm) kj2 Porfirio Coma Score: 22:43 Eye Response: spontaneous(4). Motor Response: obeys commands(6). Verbal Response: sp4 oriented(5). Total: 15. ED Course: 04/20 22:29 Patient arrived in ED. al5 22:29 Antonio Hauser MD is Attending Physician. sp4 22:30 Erin De La Torre, GENEVA is Primary Nurse. kj2 22:39 Inserted saline lock: 20 gauge in left forearm, using aseptic technique. Blood kj2 collected. Flushed with 10 mL NS. 22:57 Patient has correct armband on for positive identification. Call light in reach. kj2 Provided Education on: call light. 23:00 Triage completed. kj2 04/21 01:16 CT Chest, Abdomen, Pelvis - W/Contrast In Process Unspecified. EDMS 04:00 Arm band placed on right wrist. al5 04:33 No provider procedures requiring assistance completed. IV discontinued, intact, al5 bleeding controlled, No redness/swelling at site. Pressure dressing applied. Administered Medications: 04/20 22:52 Drug: Ativan IVP 2 mg IVP once Route: IVP; Site: left forearm; kj2 04/21 01:06 Follow up: Response: No adverse reaction [facility] 04/20 23:05 Not Given (Duplicate Order): lorazepam2 mg IM once ha1 23:30 Drug: TORadol - Ketorolac IVP 30 mg IVP once Route: IVP; Site: left antecubital; kb4 04/21 01:06 Follow up: Response: No adverse reaction 4 04/20 23:30 Drug: Ondansetron IVP 8 mg IVP once; over 2 minutes Route: IVP; Site: left antecubital; kb4 04/21 01:06 Follow up: Response: No adverse reaction 4 04/20 23:30 Drug: NS 0.9% IV 1000 ml IV at 1 bolus Per protocol; to be given as a bolus over 60 kb4 minutes Route: IV; Rate: 1 bolus; Site: left antecubital; 04/21 01:06 Follow up: Response: No adverse reaction 4 04/20 23:31 Drug: morphine IVP or IV 4 mg IVP once over 4 mins Route: IVP; Infused Over: 4 mins; kb4 Site: left antecubital; 04/21 01:06 Follow up: Response: No adverse reaction 4 04/20 23:31 Drug: Droperidol IVP 1.25 mg IVP once Route: IVP; Site: left antecubital; kb4 04/21 01:06 Follow up: Response: No adverse reaction kb4 Medication: 04:33 VIS not applicable for this client. al5 Outcome: 03:55 Discharge ordered by . sp4 05:04 Discharged to home ambulatory, al5 05:04 Condition: good 05:04 Discharge instructions given to patient, Instructed on discharge instructions, Demonstrated understanding of instructions, follow-up care, 05:06 Patient left the ED. al5 Signatures: Dispatcher [employer] EDMS Antonio Hauser MD MD sp4 Susana Gallo RN RN al5 Erin De La Torre RN RN kj2 Danelle Rodriguez RN RN kb4 China Mary RN ha1
--- NOTE | 2025-04-21 04:01 | RAD REPORT ---
CT CHEST ABDOMEN PELVIS WITH IV CONTRAST CLINICAL INDICATIONS: Spinal pain and dyspnea COMPARISON: CT abdomen and pelvis 06/02/2020 TECHNIQUE: CT images of the chest, abdomen and pelvis were obtained following administration of intra venous contrast. Multiplanar reformats were provided. Dose lowering techniques such as automated exposure control, iterative reconstruction, and mA and/or kV adjustment for patient size was utilized for this examination. CHEST FINDINGS: LOWER NECK: Unremarkable. AIRWAYS: Trachea and mainstem bronchi are patent. LUNGS/PLEURA: Patchy streaky opacities at bilateral lower lobes may represent subsegmental atelectasi s or infiltrates. No focal air space consolidation. No discrete mass or nodules. No pleural effusions or pneumothorax. VASCULATURE: No evidence of thoracic aortic aneurysm or dissection. MEDIASTINUM/NODES: No pathologic adenopathy. HEART: Normal heart size. No pericardial effusion. CHEST WALL: Unremarkable. BONES: Postsurgical changes previous T11-T12 posterior spinal fusion and laminectomies. Beam harden ing artifact from hardware degrades the exam. No hardware loosening or disruption. Stranding in the paraspinal and subcutaneous soft tissue at the surgical site of posterior trunk may represent scarrin g or edema. No large collection. ABDOMEN/PELVIS FINDINGS: LIVER: Unremarkable. BILIARY: No calcified gallstones. No pericholecystic fluid. Common bile duct is mildly prominent hardik adry, measuring up to 7 mm in diameter.. PANCREAS: Mildly prominent pancreatic duct without kendell dilatation. No focal pancreatic lesion. SPLEEN: Unremarkable. ADRENALS: Unremarkable. KIDNEYS/URETERS: Unremarkable. STOMACH: Small hiatal hernia. BOWEL: Colonic diverticulosis without acute diverticulitis. No focal bowel wall thickening or dilatat ion. No bowel obstruction. APPENDIX: Appendix is not definitively visualized. No focal inflammation in right lower quadrant to s uggest acute appendicitis. PERITONEUM/RETROPERITONEUM: Unremarkable. LYMPH NODES: Unremarkable. URINARY BLADDER: Unremarkable. REPRODUCTIVE: Unremarkable. VASCULATURE: Moderate atherosclerotic calcification of abdominal aorta without aneurysm. ABDOMINAL/PELVIC WALL: Unremarkable. BONES: No acute bony abnormality. No vertebral compression deformities. No suspicious sclerotic or ly tic bone lesion. IMPRESSION: 1. Patchy streaky opacities at bilateral lower lobes may represent subsegmental atelectasis or infi ltrates. 2. Mildly prominent common bile duct and pancreatic duct without kendell dilatation. Correlation with liver function test is recommended. Follow-up with abdominal ultrasound can be considered. 3. Colonic diverticulosis without acute diverticulitis. 4. Postsurgical changes from previous T11-T12 posterior spinal fusion and laminectomies. Fat strand ing in the paraspinal and subcutaneous soft tissue at the surgical site of posterior trunk may represent scarring or edema. No large collection. Electronically signed by: Carlita Cortes MD 04/21/2025 03:42 AM CDT RP Due to temporary technical issues with the PACS/[employer] reporting system, reports are being tiffany d by the in-house radiologist without review as a courtesy to ensure prompt reporting the interpreting radiologist is fully responsible for the content of the report. Transcribed Date/Time: 04/21/2025 4:00 AM
[2025-04-21 05:55] VITALS: O2SAT 95
[2025-04-21 05:57] VITALS: BP 101/59
== END 2025-04-21 05:06 | disposition home or self-care (01) ==
LOC: ER 22:28
DX: F41.9 Anxiety disorder, unspecified (principal); G89.18 Other acute postprocedural pain; Z87.39 Personal history of other diseases of the musculoskeletal system and connective tissue
CPT/HCPCS: 85025; 36415; 82550; 81003; 84484; 83690; 80053; 83880; 80307; 71260; 74177; 99284; 82077; Q9967; J1885; J2405; J1790; J7030